=== PATIENT | male | born 1970 | race Two or more races ===

== ENCOUNTER 2025-07-07 12:33 | Inpatient (IN) | payer MEDICAID, SELFPAY ==
[2025-07-07] VITALS (7 sets, daily range): BP systolic 104–182; BP diastolic 80–106; PULSE 72–109; RESP 17–89; TEMP 36.4–40.7; O2SAT 89–99; BMI 48.4
--- NOTE | 2025-07-07 12:44 | EKG_ITS ---
[facility] Test Date: 2025-07-07 Pat Name: MEREDITH CAMPUZANO Department: Room: - Gender: Male Chair Mender: : 1970 Requested By: Ricky Valencia Order Number: [id number] Reading MD: Ricky Valencia Measurements Intervals [place] Rate: 109 P: 36 DC: 172 QRS: -7 QRSD: 106 T: 28 QT: 366 QTc: 493 Interpretive Statements SINUS TACHYCARDIA MODERATE ST DEPRESSION [0.05+ mV ST DEPRESSION] No previous ECG available for comparison /[id number]/S0/[id number].pdf
--- NOTE | 2025-07-07 12:52 | XR_ITS ---
Examination: AP chest single view Technique one AP portable upright chest single view Date and time: July 07, 2025 1305 hours, comparison September 27, 2013 INDICATIONS: Chest pain today, fever FINDINGS: Minor prominence left ventricle Ectatic thoracic aorta. Mild vascular congestion. No lobar pneumonia or pulmonary edema IMPRESSION: No lobar pneumonia or pulmonary edema
--- NOTE | 2025-07-07 12:52 | XR_ITS ---
Examination: CT brain head without contrast. 2-D sagittal coronal reconstructions Date and time of exam:July 07, 2025 1443 hours INDICATIONS: Altered mental status today CTDI: vol (mGy):57 DLP: (mGycm):1145 Technique: Multiple CT axial sections of the brain have been obtained, 5 mm slice thickness. Contrast has not been administered. 2-D sagittal, coronal reconstructions have been obtained Low dose protocols were performed. One or more of the following dose reduction techniques were used; automated exposure control, adjustment of the mA and/or KV according to patient size, use of iterative reconstruction technique. Findings: No significant ventricular enlargement. Intra-axial or extra-axial hemorrhage density is not seen. No mass effect or midline shift Basal cisterns are not remarkable. Fourth ventricle is midline. Cranial vault intact. Impression: Negative for acute hemorrhage, mass effect or midline shift Advise clinical correlation follow-up accordingly
--- NOTE | 2025-07-07 12:52 | PD.EDRME ---
Rapid Medical Screening Exam RME Arrival date/time: 07/07/25 12:33 54-year-old male with a history of hypertension, presents to the emergency room with a chief complaint of altered mental status. Patient is having a difficult time explaining what his chief complaint is and according to daughter at bedside this has been going on for the last 3 days. I have greeted and performed a focused initial assessment of this patient. A comprehensive ED assessment and evaluation of the patient, analysis of all test results, and completion of the medical decision making process will be conducted by additional ED providers. Chief Complaint: Dizziness Vital signs reviewed by provider: Yes
--- NOTE | 2025-07-07 13:14 | EDNOTE_ITS ---
<Statement entered by Nikki Wilson MD - 07/08/25 06:12> As co-signing physician, I was present and available for consult prn. I concur with the plan and care as documented by the midlevel provider. ED General RME/HPI General Chief complaint: Dizziness Stated complaint: Dizzy X 1 week, vomiting X 3 days Time Seen by Provider: 07/07/25 13:10 Arrival date/time: 07/07/25 12:33 CC: Weakness loss of appetite HPI ongoing for the past 3 days. The patient seems mildly confused, young daughter at bedside is not contributory to the past medical history. The patient is not aware what medicines he takes. Patient is awake alert oriented x 3 Glascow coma 15 no focal deficits. RME / HPI RME / HPI narrative: 07/07/25 12:33 54-year-old male with a history of hypertension, presents to the emergency room with a chief complaint of altered mental status. Patient is having a difficult time explaining what his chief complaint is and according to daughter at bedside this has been going on for the last 3 days. I have greeted and performed a focused initial assessment of this patient. A comprehensive ED assessment and evaluation of the patient, analysis of all test results, and completion of the medical decision making process will be conducted by additional ED providers. Related Data Home Medications ?Medication ?Instructions ?Recorded ?Confirmed Amlodipine Bes/Benazepril * PO DAILY PRN HYPERTENSION #0 caps 09/27/13 (LOTREL 02/28 *) Previous Rx's ?Medication ?Instructions ?Recorded ibuprofen 600 mg tablet 600 mg PO Q6HR #30 tabs 05/03 Allergies Allergy/AdvReac Type Severity Reaction Status Date / Time NKA* Allergy Uncoded 07/07/25 12:40 Review of Systems Review of Systems Narrative Review of Systems: GEN: + fever, no chills, no weight loss EYES: No discharge, no visual changes, no pain HEENT: No ear pain, no congestion, no sore throat PULM: No shortness of breath, no cough, no congestion CV: No chest pain, no dyspnea on exertion, no palpitations GI: No nausea, no vomiting, no diarrhea, no pain, no constipation : No frequency, no urgency, no dysuria MUSC/SKEL: No joint pain, no back pain SKIN: No rash PSYCH: No hallucinations, no depression HEME/LYMPH: No easy bleeding or bruising tendencies NEURO: + weakness, no headache Past Medical History Social History SMOKING STATUS: Never smoker ED Exam Narrative Physical exam: [General: Obese, appears not in any acute distress Head normocephalic HEENT: Eyes: Pupils are PERRLA EOMs are intact mouth pink moist membranes uvula is midline swallow symmetrical phonation is normal all of the substance of HEENT are within acceptable limits Neck is supple nontender Chest equal chest rise nontender to palpation Respiratory: Clear to auscultation no wheezes crackles or rubs CV: Rate rhythm is regular no murmurs rubs or clicks Abdomen is grossly distended secondary to body habitus with large pannus, soft nontender no masses positive bowel sounds all 4 quadrants Back: No CVA tenderness no spinous process tenderness from cervical spine thoracic and lumbar spine Skin: Intact no petechiae rash induration ulceration or crepitus Extremities: Moving all extremity against resistance cap refill less than 2 seconds neurosensory intact Neuro: Awake alert oriented x3 Glascow coma 15 no focal deficits] cranial nerves II through XII grossly intact Course Course Course Narrative: Review the laboratory results and imaging shows no acute source for sepsis. In the meantime the patient has become more somnolent even though his fevers coming down. The patient remains also mildly diaphoretic. Patient's case clinical presentation laboratory findings presented to Dr. Mojica neurologist who is requesting IR LP. Once him started on Rocephin and Vanco and will admit him to the hospital. Quality Measures none Orders Category Date Time Status Bedside Blood Glucose Q6HR Care 07/07/25 20:24 Active Bedside COVID-19 Antigen Test NOW Care 07/07/25 13:00 Active Bedside Influenza A&B Antigen Test NOW Care 07/07/25 13:00 Completed COVID-19 Screening Questionnaire NOW Care 07/07/25 19:04 Active Decision to Admit X1 Care 07/07/25 19:04 Completed EKG (ED ONLY) *Do not use* NOW Care 07/07/25 12:44 Completed Burch [Urinary Catheter] QS Care 07/07/25 17:59 Active In and Out Catheter X1 Care 07/07/25 16:22 Completed Consult to Neurology / Tele-Neurology Stat Cons 07/07/25 17:[address] abdomen pelvis wo con Stat Exams 07/07/25 16:[address] head/brain wo con Stat Exams 07/07/25 12:52 Completed EKG (ED Only) Stat Exams 07/07/25 12:44 Draft IR lumbar puncture Stat Exams 07/07/25 Ordered US gall bladder Stat Exams 07/07/25 17:20 Completed XR chest 1V portable Stat Exams 07/07/25 12:52 Completed ABG [Arterial Blood Gas] Stat Lab 07/07/25 19:36 Completed Alcohol, Blood Medical Stat Lab 07/07/25 13:29 Completed Ammonia Stat Lab 07/07/25 13:29 Completed B-Type Natriuretic Peptide Stat Lab 07/07/25 13:29 Completed Beta Hydroxybutyrate Routine Lab 07/07/25 20:55 Completed Blood Culture (Lab) Stat Lab 07/07/25 13:29 Received CBC Stat Lab 07/07/25 13:29 Completed CSF Culture and Gram Stain Stat Lab 07/07/25 22:00 Ordered Cell Count w Diff, CSF Stat Lab 07/07/25 22:00 Ordered Cocci Serology IgM with reflex to IgG [Cocci Serology, Lab 07/08/25 05:00 Ordered Unk History] AM DRAW Coccid Serology, CF CSF (UCD)* Stat Lab 07/07/25 22:00 Ordered Comprehensive Metabolic Panel Stat Lab 07/07/25 13:29 Completed Drug Screen,Urine Stat Lab 07/07/25 16:23 Completed Enterovirus RNA, PCR, CSF Stat Lab 07/07/25 22:00 Ordered Glucose,CSF Stat Lab 07/07/25 22:00 Ordered Lactate (Lactic Acid) Stat Lab 07/07/25 13:29 Completed Lactic Acid, 3 HR Stat Lab 07/07/25 17:11 Completed Magnesium Stat Lab 07/07/25 13:29 Completed Partial Thromboplastin Time Stat Lab 07/07/25 13:29 Completed Procalcitonin Stat Lab 07/07/25 13:29 Completed Protein Total,CSF Stat Lab 07/07/25 22:00 Ordered Prothrombin Time with INR Stat Lab 07/07/25 13:29 Completed Troponin I Stat Lab 07/07/25 13:29 Completed Urinalysis, C/S if Indicated Stat Lab 07/07/25 16:23 Completed Acetaminophen Ivpb [Ofirmev Inj] Med 07/07/25 13:11 Hold 1,000 mg in 100 ml IV Q6HR Acetaminophen Tab [Tylenol ES Tab] Med 07/07/25 13:01 Discontinued 1,000 mg PO X1 ONE Acyclovir Inj [Zovirax Inj] 700 mg Med 07/07/25 22:00 Active Sodium Chloride 0.9% [Ns] 100 ml IV Q8HR Acyclovir Inj [Zovirax Inj] 700 mg Med 07/08/25 14:00 Pending Sodium Chloride 0.9% [Ns] 100 ml IV Q8HR Ampicillin Inj 2,000 mg Med 07/07/25 17:52 Active Sodium Chloride 0.9% (Pop) [NS 0.9% mini bag] 100 ml IV Q4HR Dextrose 50% Syr [D50w Syringe Abboject] Med 07/07/25 20:24 Active 25 ml IV Q15MIN PRN Dextrose 50% Syr [D50w Syringe Abboject] Med 07/07/25 20:24 Active 50 ml IV Q15MIN PRN Glucagon Inj Med 07/07/25 20:24 Active 1 mg IM Q15MIN PRN INSULIN LISPRO (AdmeLOG) [HumaLOG] Med 07/08/25 07:30 Active See Protocol SC AC Ibuprofen Tab [Motrin Tab] Med 07/07/25 13:10 Discontinued 800 mg PO X1 ONE KCL 10% Liq UDC 15 ML Med 07/07/25 14:50 Discontinued 40 meq GT X1 ONE Ringers Lactated 1000 ml [Lactated Ringers] 1,000 ml Med 07/07/25 14:03 Discontinued IV 999 mls/hr Ringers Lactated 1000 ml [Lactated Ringers] 1,000 ml Med 07/07/25 14:03 Discontinued IV 999 mls/hr Ringers Lactated 1000 ml [Lactated Ringers] 1,000 ml Med 07/07/25 14:04 Discontinued IV 999 mls/hr Ringers Lactated 1000 ml [Lactated Ringers] 1,000 ml Med 07/07/25 14:04 Discontinued IV 999 mls/hr Vancomycin Pharmacy to Dose Med 07/08/25 09:00 Active 1 each IV QDAY Vancomycin/D5w 1500 mg Ivpb 300 ml Med 07/07/25 17:04 Discontinued IV X1 cefTRIAXone [Rocephin] 2 gm Med 07/07/25 21:00 Active SODIUM CHLORIDE 0.9% (Popper) [Ns 0.9% (P)] 50 ml IV Q12HR cefTRIAXone/D5w 1gm IV premix [Rocephin/D5w 1gm IV Med 07/07/25 14:04 Di scontinued premix] 1 gm in 50 ml IV X1 cefTRIAXone/D5w 1gm IV premix [Rocephin/D5w 1gm IV Med 07/07/25 17:04 Discontinued premix] 1 gm in 50 ml IV X1 Vital Signs Vital signs: Vital Signs Temperature 103.1 F H 07/07/25 12:55 Pulse Rate 109 H 07/07/25 12:55 Respiratory Rate 19 07/07/25 12:55 Blood Pressure 157/100 H 07/07/25 12:55 Pulse Oximetry (%) 95 07/07/25 12:55 Oxygen Delivery Method Room Air 07/07/25 12:55 Discharge Plan Plan Patient Disposition: Admit Acute Care w/in Hospital Problem List Clinical Impression: AMS (altered mental status), Fever PA/BURR FILER Supervising Physician PA/BURR FILER Supervising Physician: Karl Dhillon ENP [facility] Clinical Information Provided by patient Medical Records Reviewed [facility] Meds/Rx Considered, not Ordered None Labs/Rad/Tests considered, not Ordered None EKG EKG Interpretation narrative: EKG performed at 1250 shows a ventricular rate of 109. Of 0172 QRS of 106 QTc of 430 sinus tachycardia. Lab Interpretation Lab(s) interpretation(s): CBC shows mild leukocytosis of 13.3 no anemia thrombocytopenia no bandemia Coags within acceptable limits. Lactic at 3.2. CMP shows potassium 3.1 chloride of 95. Glucose of 321 T. bili of 1.4 no transaminitis Ammonia less than 10 BNP of 215 total protein of 8.4 Procalcitonin of 0.15. Alcohol level is undetectable. COVID influenza are negative Medication Administration(s) Medication Administration History Acetaminophen (Acetaminophen 325 Mg Tablet) 650 mg PO Q6H PRN PRN Reason: PAIN SCALE 1-3 (mild Stop: 08/06/25 20:27 Acetaminophen (Acetaminophen 325 Mg Tablet) 650 mg PO Q6H PRN PRN Reason: Fever >100.4 Stop: 08/06/25 20:27 Dextrose (Dextrose 50%-Water Inj 50 Ml Syringe) 25 ml IV Q15MIN PRN PRN Reason: BG 50-70 responsive npo pt Stop: 08/06/25 20:23 Dextrose (Dextrose 50%-Water Inj 50 Ml Syringe) 50 ml IV Q15MIN PRN PRN Reason: BG <50 OR BG <70 & pt unresponsive Stop: 08/06/25 20:23 Glucagon (Glucagon Inj 1 Mg Vial) 1 mg IM Q15MIN PRN PRN Reason: BG <70, and no IV access Acetaminophen (Ofirmev Inj) 1,000 mg in 100 mls @ 250 mls/hr IV Q6HR EVANGELINA On Hold: 07/07/25 20:35 Comment: CHANGED TO TABLET Last Admin: 07/07/25 18:11 Dose: Not Given Documented By: NAVEED Non-Admin Reason: Cancelled by Provider Infusion: 07/07/25 14:00 Dose: Infused Documented By: Admin: 07/07/25 13:32 Dose: 250 mls/hr Documented By: NAVEED Ceftriaxone Sodium 2 gm/ (Sodium Chloride) 50 mls @ 100 mls/hr IV Q12HR EVANGELINA Stop: 07/14/25 20:59 Last Admin: 07/07/25 20:59 Dose: 100 mls/hr Documented By: JAHAIRA Ampicillin Sodium 2,000 mg/ (Sodium Chloride) 100 mls @ 200 mls/hr IV Q4HR EVANGELINA Stop: 07/14/25 17:51 Last Admin: 07/07/25 22:53 Dose: 200 mls/hr Documented By: Infusion: 07/07/25 20:08 Dose: Infused Documented By: Admin: 07/07/25 19:35 Dose: 200 mls/hr Documented By: JAHAIRA Acyclovir Sodium 700 mg/ (Sodium Chloride) 114 mls @ 114 mls/hr IV Q8HR EVANGELINA Stop: 07/14/25 21:59 Acyclovir Sodium 700 mg/ (Sodium Chloride) 114 mls @ 114 mls/hr IV Q8HR EVANGELINA; Protocol Stop: 07/08/25 06:59 Last Admin: 07/07/25 22:01 Dose: 114 mls/hr Documented By: Insulin Human Lispro (Insulin Lispro (Admelog) 1 Unit/0.01 Ml Unit) 0 unit SC AC EVANGELINA; Protocol Stop: 08/07/25 07:29 Ondansetron HCl (Ondansetron Inj 2 Mg/Ml Inj 2 Ml) 4 mg IVP Q6H PRN; Protocol PRN Reason: NAUSEA OR VOMITING Stop: 08/06/25 20:27 Pantoprazole Sodium (Pantoprazole Inj 40 Mg Vial) 40 mg IVP QDAY [facility] Stop: 08/07/25 08:59 Pharmacy Consult (Vancomycin Pharmacy To Dose 1 Each Each) 1 each IV QDAY [facility] Stop: 08/07/25 08:59 Discontinued Medications Acetaminophen (Acetaminophen 500 Mg Tablet) 1,000 mg PO X1 ONE Stop: 07/07/25 13:02 Last Admin: 07/07/25 13:12 Dose: Not Given Documented By: GM Non-Admin Reason: Cancelled by Provider Lactated Ringer's (Lactated Ringers) 1,000 mls @ 999 mls/hr IV .Q1H1M ONE Stop: 07/07/25 15:03 Last Infusion: 07/07/25 16:14 Dose: Infused Documented By: Admin: 07/07/25 14:29 Dose: 999 mls/hr Documented By: AA Lactated Ringer's (Lactated Ringers) 1,000 mls @ 999 mls/hr IV .Q1H1M ONE Stop: 07/07/25 15:03 Last Infusion: 07/07/25 18:12 Dose: Infused Documented By: Admin: 07/07/25 15:33 Dose: 999 mls/hr Documented By: GM Lactated Ringer's (Lactated Ringers) 1,000 mls @ 999 mls/hr IV .Q1H1M ONE Stop: 07/07/25 15:04 Last Infusion: 07/07/25 18:59 Dose: Infused Documented By: Admin: 07/07/25 16:14 Dose: 999 mls/hr Documented By: GM Lactated Ringer's (Lactated Ringers) 1,000 mls @ 999 mls/hr IV .Q1H1M ONE Stop: 07/07/25 15:04 Last Infusion: 07/07/25 20:08 Dose: Infused Documented By: Admin: 07/07/25 18:11 Dose: 999 mls/hr Documented By: NAVEED Ceftriaxone Sodium/Dextrose (Rocephin/D5w 1gm Iv Premix) 1 gm in 50 mls @ 100 mls/hr IV X1 ONE Stop: 07/07/25 14:33 Last Infusion: 07/07/25 15:13 Dose: Infused Documented By: Admin: 07/07/25 14:28 Dose: 100 mls/hr Documented By: AA Vancomycin HCl/Dextrose (Vancomycin/D5w 1500 Mg Ivpb) 300 mls @ 120 mls/hr IV X1 ONE Stop: 07/07/25 19:33 Last Admin: 07/07/25 20:02 Dose: 120 mls/hr Documented By: DT Ceftriaxone Sodium/Dextrose (Rocephin/D5w 1gm Iv Premix) 1 gm in 50 mls @ 100 mls/hr IV X1 ONE Stop: 07/07/25 17:33 Last Infusion: 07/07/25 18:59 Dose: Infused Documented By: Admin: 07/07/25 18:11 Dose: 100 mls/hr Documented By: NAVEED Ibuprofen (Ibuprofen Tab 400 Mg Tablet) 800 mg PO X1 ONE Stop: 07/07/25 13:11 Last Admin: 07/07/25 13:15 Dose: 800 mg Documented By: NAVEED Potassium Chloride (Potassium Chloride 10% 20 Meq/15 Ml Udc) 40 meq GT X1 ONE Stop: 07/07/25 14:51 Last Admin: 07/07/25 15:29 Dose: 40 meq Documented By: NAVEED Comments: GIVEN PO.
[2025-07-07] MEDS: IBUPROFEN TAB 400 MG TABLET 800 MG PO (13:15)
[2025-07-07] MEDS: ACETAMINOPHEN IVPB 1,000 MG/100 ML VIAL 250 MG IV (13:32)
[2025-07-07 13:52] LABS: Lactate (Lactic Acid) 3.2 mMol/L (0.4-2.0)
[2025-07-07 13:56] LABS: Basophils # (Auto) 0.0 Thou/mm3 (0.0-0.2); Basophils % (Auto) 0 % (0-2.5); Eosinophils # (Auto) 0.0 Thou/mm3 (0.0-0.5); Eosinophils % (Auto) 0 % (0-10); Hematocrit 47.0 % (41.0-53.0); Hemoglobin 15.9 g/dL (13.5-16.0); Immature Granulocytes Auto 0.06 Thou/mm3 (0.00-0.00); Lymphocytes # (Auto) 1.4 Thou/mm3 (1.0-4.8); Lymphocytes % (Auto) 10 % (10-50); Mean Corpuscular HGB Conc 33.8 g/dl (31.0-37.0); Mean Corpuscular Hemoglobin 27.6 pg (25.0-35.0); Mean Corpuscular Volume 82 fL (80-100); Monocytes # (Auto) 1.2 Thou/mm3 (0.0-0.8); Monocytes % (Auto) 9 % (0-12); Neutrophils # (Auto) 10.9 Thou/mm3 (1.8-7.7); Neutrophils % (Auto) 80 % (37-80); Nucleated Red Blood Cell # 0.00 Thou/mm3 (0.00-0.00); Nucleated Red Blood Cell % 0 /100 WBC (0); Platelet Count 309 Thou/mm3 (140-440); RDW Standard Deviation 39.6 fL (35.1-43.9); Red Blood Count 5.77 Miln/mm3 (4.50-5.90); White Blood Count 13.7 Thou/mm3 (3.8-10.6)
[2025-07-07 14:10] LABS: INR 1.1 (0.9-1.3); Partial Thromboplastin Time 25.6 Seconds (22.0-36.0); Prothrombin Time 11.5 Seconds (9.0-12.2)
[2025-07-07 14:17] LABS: B-Type Natriuretic Peptide 215 pg/mL (0-100)
[2025-07-07 14:24] LABS: Alanine Aminotransferase 12 U/L (10-49); Albumin, Serum 4.9 gm/dL (3.5-5.0); Albumin/Globulin Ratio 1.4 (1.2-2.2); Alcohol, Blood Medical < 3.0 mg/dL (0-10.0); Alkaline Phosphatase 79 U/L (46-116); Ammonia < 10 uMol/L (11-32); Anion Gap 13 (7-16); Aspartate Amino Transferase 16 U/L (0-34); BUN/Creatinine Ratio 13 Ratio (12-20); Bilirubin,Total 1.4 mg/dL (0.3-1.2); Blood Urea Nitrogen 17 mg/dL (9-23); Calcium 10.2 mg/dL (8.3-10.6); Calcium (Corrected) 10.2 mg/dL (8.5-10.1); Carbon Dioxide 27.8 mMol/L (20.0-31.0); Chloride 95 mMol/L (98-107); Creatinine (Component) 1.3 mg/dL (0.6-1.3); Estimated Creatinine Clearance 83.2 mL/min (>60); Globulin 3.5 gm/dL (2.3-3.5); Glucose 321 mg/dL (74-106); Magnesium 2.2 mg/dL (1.6-2.6); Osmolality,Calculated 285 (275-295); Potassium 3.1 mMol/L (3.4-5.1); Procalcitonin 0.15 ng/ml (0.0-0.49); Sodium 136 mMol/L (136-145); Total Protein 8.4 gm/dL (5.7-8.2); Troponin I 0.034 ng/mL (0.0-0.045); eGFR > 60 See Note
[2025-07-07] MEDS: cefTRIAXone/D5w 1gm IV premix 1 GM/50 ML BAG IV ×2 (14:28→18:11)
[2025-07-07] MEDS: RINGERS LACTATED 1000 ML 1,000 ML 999 ML IV ×4 (14:29→18:11)
[2025-07-07] MEDS: POTASSIUM CHLORIDE 10% 20 MEQ/15 ML UDC 40 MEQ GT (15:29)
--- NOTE | 2025-07-07 16:03 | XR_ITS ---
Examination: CT abdomen and pelvis without contrast. Coronal 3-D reconstructions. Sagittal 2-D reconstructions. Date and time of exam:July 07, 2025 1627 hrs. Indications: Sepsis alert today with abdominal pain. CTDI: vol (mGy): 13.7 DLP: (mGycm): 1062 Technique: Axial images of the abdomen have been obtained, 3 mm slice thickness Intravenous contrast material has not been administered. Low dose protocols were performed. One or more of the following dose reduction techniques were used; automated exposure control, adjustment of the mA and/or KV according to patient size, use of iterative reconstruction technique. Findings: No visualized liver or splenic lesion No gallstones No pancreatic or adrenal mass Minimal perinephric stranding Aorta normal size. Normal appendix No abdominal or pelvic abscess Scattered colonic diverticulosis Urinary bladder wall thickening up to 4 mm No significant prostatomegaly Early degenerative disc disease L4-L5 Grade 1 spondylolisthesis L5 on S1 Impression: Minimal perinephric stranding, consider urinary tract infection Mild thickening of the urinary bladder wall, consider cystitis No abdominal or pelvic abscess. Normal appendix
[2025-07-07 16:29] LABS: Collection Type, Urine Clean Catch
[2025-07-07 16:42] LABS: Amphetamine/Methamp Scrn,U Negative (Negative); Barbiturate Screen,Urine Negative (Negative); Benzodiazepines Screen,Urine Negative (Negative); Benzoylecgonine Screen, Ur Negative (Negative); Fentanyl Screen,Urine Negative (Negative); Opiate Screen,Urine Negative (Negative); THC Screen,Urine Negative (Negative)
[2025-07-07 16:46] LABS: Reflex Lactate? Y
[2025-07-07 16:46] LABS: Bilirubin,Urine Negative (Negative); Blood,Urine Trace (Negative); Clarity,Urine Clear (Clear/Hazy); Color,Urine Yellow (Lt Yel-Yel); Culture Indicated,Urine Not Indicated; Glucose, Urine 4+ (Negative); Ketones,Urine 1+ (Negative); Leukocyte Esterase,Urine Negative (Negative); Nitrite,Urine Negative (Negative); PH,Urine 6.5 (5.0-7.0); Protein,Urine 2+ (Neg - Trace); RBC,Urine 1 /hpf (0-3); Specific Gravity,Urine 1.029 (1.001-1.035); Squamous Epithelial Cell,Urine < 1 /hpf (0-5); Urobilinogen,Urine Negative mg/dL (0.0-1.0); WBC,Urine 1 /hpf (0-5)
[2025-07-07 17:14] LABS: Lactic Acid, 3 HR 2.1 mMol/L (0.4-2.0)
--- NOTE | 2025-07-07 17:20 | XR_ITS ---
Examination: Abdomen sonogram, Limited Date and time of exam: July 07, 2025 1803 hrs. Indications: Sepsis vomiting today, with elevated bilirubin on laboratory examination today Technique: Real-time downs scale transabdominal sonographic images of the upper abdomen obtained. Findings: Negative for gallstones Normal gallbladder wall 0.2 cm Common bile duct 0.4 cm Pancreatic head 3.4 cm Liver 15.7 cm fatty infiltration no focal liver lesions. Normal hepatopedal portal venous flow Patent IVC Impression: Normal gallbladder Normal common bile duct Liver normal size fatty infiltration
--- NOTE | 2025-07-07 17:31 | PD.RESCONSUL ---
HPI Data of Consult Primary Care Provider: Kalpesh Garcia Consult Narrative History of present illness: HPI is limited at this time as patient is poor historian at this time Anshul is a 54 y/o male who comes in for evaluation of generalized weakness and confusion has been going on for the past 3 days. Per family member, patient has been having the symptoms for the past 3 days. She says that no one around him has had the symptoms before. They deny any recent travel, sick contacts or any changes to the patient's diet. She is unsure what the patient's work is. She says that the patient has not complained to her of any headache. Patient is able to respond to sternal rub and with pronunciation of his name, and withdraws to pain, however is somnolent at this time. ED course: Patient comes to the ER with a temperature of 105.2, tachycardic at 102, respiratory 19, saturating 89% on room air. Patient was worked up once found to have a white blood cell count of 14, hemoglobin 15.9, potassium 3.1, sodium 136, chloride 95, bicarb 28, BUN/creatinine 17 and 1.2 respectively, glucose 321, lactate 3.6, calcium 7.2, T. bili 1.4, AST ALT within normal limits, troponin 0.034, ammonia unremarkable, BNP 215, Pro-Raman 0.15. Urine analysis showed +4 glucose, +1 ketones. Urine drug screen was negative, ethyl alcohol level was unremarkable. Patient had EKG which showed sinus tachycardia, QTc of 493, chest x-ray was within normal limits, head CT was unremarkable with no mass effect, midline shift or acute hemorrhage, CT abdomen pelvis showed mild thickening of the bladder and minimal perinephric stranding. Patient was given patient was given Rocephin x 1, 3 L lactated Ringer's, ibuprofen and her milligrams x 1, Tylenol 1 g, potassium chloride 40 mEq. cc:: cc: Review of Systems Review of Systems Narrative Review of Systems: 12 point ROS was reviewed and otherwise negative for stated directly in HPI Exam Vital Signs Temp Pulse Resp BP Pulse Ox O2 Del Method O2 Flow Rate 100.6 F H 78 17 104/81 94 L Nasal Cannula 2 07/07/25 15:24 07/07/25 15:24 07/07/25 15:24 07/07/25 15:24 07/07/25 15:24 07/07/25 15:24 07/07/25 15:24 Narrative Exam General: In mild distress, morbidly obese male, eyes closed, HEENT: Pinpoint pupils, difficulty assessing extraocular motor movements Cardiovascular: S1, S2, radial pulses +2 bilat, RRR Pulmonary: CTAB bilat no cough, no wheezing GI: No tenderness to light or deep palpitation, no guarding, rigidity, rebound tenderness or distension Extremities: No presence of trace or pitting edema in lower extremities bilaterally, dorsalis pedis pulses +2 bilaterally Neuro: GCS 9, responds to sternal rub, with this from pain Psych: Minimal cooperation Results Labs 07/09/25 04:30 07/09/25 04:30 Labs: Short CBC 07/07/25 Range/Units 13:29 WBC 13.7 H (3.8-10.6) Thou/mm3 Hgb 15.9 (13.5-16.0) g/dL Hct 47.0 (41.0-53.0) % Plt Count 309 (140-440) Thou/mm3 BMP 07/07/25 13:29 Sodium 136 Potassium 3.1 L Chloride 95 L Carbon Dioxide 27.8 BUN 17 Creatinine 1.3 Glucose 321 H Calcium 10.2 Cardiac Enzymes 07/07/25 Range/Units 13:29 Troponin I 0.034 (0.0-0.045) ng/mL Liver Function 07/07/25 Range/Units 13:29 Total Bilirubin 1.4 H (0.3-1.2) mg/dL AST 16 (0-34) U/L ALT 12 (10-49) U/L Alkaline Phosphatase 79 (46-116) U/L Albumin 4.9 (3.5-5.0) gm/dL Urine 07/07/25 Range/Units 16:23 Urine Color Yellow (Lt Yel-Yel) Urine Clarity Clear (Clear/Hazy) Urine pH 6.5 (5.0-7.0) Ur Specific [place] 1.029 (1.001-1.035) Urine Protein 2+ A (Neg - Trace) Urine Glucose (UA) 4+ A (Negative) Quality Measures Quality Measures sepsis Current suspected stage: sepsis Possible source: GI tract/intra-abdominal and meningitis Blood cultures ordered: yes Antibiotic ordered: Yes Medications Home Medications and Allergies Home Medications ?Medication ?Instructions ?Recorded ?Confirmed ?Type Amlodipine Bes/Benazepril * 1 cap PO DAILY PRN HYPERTENSION #0 09/27/13 07/08/25 History (LOTREL 510 *) caps amlodipine 10 mg tablet 10 mg PO DAILY 07/07/25 07/07/25 History glipizide 10 mg tablet, extended 10 mg PO DAILY 07/07/25 07/07/25 History release 24 hr lisinopril 10 mg tablet 10 mg PO DAILY 07/07/25 07/07/25 History metformin 1,000 mg tablet 1,000 mg PO BID 07/07/25 07/07/25 History Allergies Allergy/AdvReac Type Severity Reaction Status Date / Time NKA* Allergy Uncoded 07/07/25 12:40 Visit Medications Acetaminophen (Ofirmev Inj) 1,000 mg in 100 mls @ 250 mls/hr IV Q6HR EVANGEILNA Stop: 07/08/25 06:23 Last Infusion: 07/07/25 14:00 Dose: Infused Vancomycin HCl/Dextrose (Vancomycin/D5w 1500 Mg Ivpb) 300 mls @ 120 mls/hr IV X1 ONE Stop: 07/07/25 19:33 Ceftriaxone Sodium/Dextrose (Rocephin/D5w 1gm Iv Premix) 1 gm in 50 mls @ 100 mls/hr IV X1 ONE Stop: 07/07/25 17:33 Discontinued Medications Acetaminophen (Acetaminophen 500 Mg Tablet) 1,000 mg PO X1 ONE Stop: 07/07/25 13:02 Last Admin: 07/07/25 13:12 Dose: Not Given Lactated Ringer's (Lactated Ringers) 1,000 mls @ 999 mls/hr IV .Q1H1M ONE Stop: 07/07/25 15:03 Last Infusion: 07/07/25 16:14 Dose: Infused Lactated Ringer's (Lactated Ringers) 1,000 mls @ 999 mls/hr IV .Q1H1M ONE Stop: 07/07/25 15:03 Last Admin: 07/07/25 15:33 Dose: 999 mls/hr Lactated Ringer's (Lactated Ringers) 1,000 mls @ 999 mls/hr IV .Q1H1M ONE Stop: 07/07/25 15:04 Last Admin: 07/07/25 16:14 Dose: 999 mls/hr Lactated Ringer's (Lactated Ringers) 1,000 mls @ 999 mls/hr IV .Q1H1M ONE Stop: 07/07/25 15:04 Ceftriaxone Sodium/Dextrose (Rocephin/D5w 1gm Iv Premix) 1 gm in 50 mls @ 100 mls/hr IV X1 ONE Stop: 07/07/25 14:33 Last Infusion: 07/07/25 15:13 Dose: Infused Ibuprofen (Ibuprofen Tab 400 Mg Tablet) 800 mg PO X1 ONE Stop: 07/07/25 13:11 Last Admin: 07/07/25 13:15 Dose: 800 mg Potassium Chloride (Potassium Chloride 10% 20 Meq/15 Ml Udc) 40 meq GT X1 ONE Stop: 07/07/25 14:51 Last Admin: 07/07/25 15:29 Dose: 40 meq Assessment & Plan Plan Assessment: Anshul is a 54 y/o male with PMHx of morbid obesity comes in for an evaluation of sepsis and acute encephalopathy. #Acute encephalopathy DDx: Infectious, drug-induced, metabolic Likely infectious source at this time due to patient meeting septic criteria Temperature of 105, likely related to possible meningitis, however the patient did not complain of the headache Will need to cover for bacterial and viral meningitis at this time Plan: ? Antipyretics ? Lumbar puncture ? Rocephin 2 g IV twice daily ? Vancomycin ? Ampicillin 2 g IV every 4 hours ? Acyclovir IV 10 mg/kg every 8 hours ? Cocci IgM Patient seen and care discussed with my attending physician, Dr. Yunior Avery, PGY-2 This document was transcribed using voice recognition technology. Minor inaccuracies may be present. Attending Provider Attestation/Addendum I personally have seen and examined the patient at the bedside and agreed with resident's findings, assessment and plan of care. Patient underwent lumbar puncture today. Patient's mental status is back to baseline, as he continued to have fever spikes. Will follow-up with the CSF analysis continue with the current antibiotics until the culture comes back.
--- NOTE | 2025-07-07 18:07 | EVENTNT_ITS ---
Documentation for date of: 07/07/25 Event Note Event Note: Anshul Jaramillo is a 54-year-old male with past medical history of type 2 diabetes mellitus and hypertension who presents with weakness and confusion for the last few days. Due to mental status, history obtained from chart review. Upon arrival to the ED, patient was febrile with temperature 105.2 ?F, tachycardic with pulse of 109, and saturating well on room air. Per ED staff, initial GCS of 15 but decreased to 10 while in ED but was withdrawing to pain. Labs showed mild leukocytosis of 13.7 but otherwise CBC unremarkable. CHEM panel showed hypokalemia of 3.1, glucose 321, lactic acid of 3.2 that decreased to 2.1 with IVF. Otherwise, T. bili elevated 1.4 but does not endorse any abdominal pain. CXR unremarkable, CT head unremarkable, and CT A/P showed minimal perinephric stranding and mild thickening of urinary bladder wall. EKG showed sinus tachycardia. Given decrease in GCS within ED and high fever, CT A/P findings do not correlate with presentation and currently patient is undergoing LP per recommendations from neurology at this time and initiated on rocephin, vancomycin, ampicillin, and acyclovir for meningitis treatment. Given pending studies [facility]. ----- Plan discussed with attending physician Dr. Elysia Robles MD PGY-2 Internal Medicine
[2025-07-07] MEDS: Ampicillin Inj 2,000 MG in SODIUM CHLORIDE 0.9% (POP) 100 ML 200 MG IV ×2 (19:35→22:53)
[2025-07-07 19:41] LABS: Base Excess 3 (-3-3); HCO3 28 mEq/L (20-26); Inspired Oxygen, FIO2 21 %; O2 Saturation 99 % (91-98); PCO2 43 mmHg (32.0-48.0); PO2 99 mmHg (83-108); pH, Arterial 7.42 (7.35-7.45)
[2025-07-07 19:43] LABS: Allen Test Performed/OK; Puncture Site Right Radial
[2025-07-07] MEDS: VANCOMYCIN/D5W 1500 MG IVPB 300 ML 120 MG IV (20:02)
[2025-07-07] MEDS: cefTRIAXone 2 GM in SODIUM CHLORIDE 0.9% (Popper) 50 ML IV (20:59)
[2025-07-07 21:11] LABS: Beta Hydroxybutyrate 0.1 mmol/L (<0.6)
[2025-07-07] MEDS: ACYCLOVIR INJ 700 MG in SODIUM CHLORIDE 0.9% 100 ML 114 MG IV (22:01)
--- NOTE | 2025-07-07 22:29 | ESHP_ITS ---
Documentation for date of: 07/07/25 [facility] History of Present Illness History of present illness: Anshul Jaramillo is a 54-year-old male with past medical history of type 2 diabetes mellitus and hypertension who presents to [facility] ED on 07/07/2025 with weakness and confusion for the last few days. Due to mental status, history obtained from chart review. Per family member daughter, patient has been having the symptoms for the past 3 days. She says that no one around him has had the symptoms before. They deny any recent travel, sick contacts or any changes to the patient's diet. She is unsure about the patient work. She says that the patient has not complained to her of any headache. 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 Upon evaluation patient is able to respond to sternal rub and with pronunciation of his name, and withdraws to pain, however is somnolent at this time. ED Course: -Initial vitals were febrile with temperature 105.2 ?F, tachycardic with pulse of 109, and saturating well on room air. - Per ED staff, initial GCS of 15 but decreased to 10 while in ED but was withdrawing to pain. -Labs significant for white blood cell count of 14, hemoglobin 15.9, potassium 3.1, sodium 136, chloride 95, bicarb 28, BUN/creatinine 17 and 1.2 respectively, glucose 321, lactate 3.6, calcium 7.2, T. bili 1.4, AST ALT within normal limits, troponin 0.034, ammonia unremarkable, BNP 215, Pro-Raman 0.15. Urine analysis showed +4 glucose, +1 ketones. Urine drug screen was negative, ethyl alcohol level was unremarkable. EKG which showed sinus tachycardia, QTc of 493 -Imaging included CXR unremarkable, CT head unremarkable, and CT A/P showed minimal perinephric stranding and mild thickening of urinary bladder wall. EKG showed sinus tachycardia -In the ED, patient was ibuprofen, tylenol, ceftriaxone, 3 L LR, potassium chloride, ampicillin, vancomycin. -Patient was admitted for acute encephalopathy evaluation and management. Review of Systems Review of systems otherwise negative except what is mentioned above. Past Medical History: Mentioned above Family History: Unable to obtain due to mentation Surgical History: Unable to obtain due to mentation Social History: Unable to obtain due to mentation Current Medications: med list Allergies: No known drug allergies Exam Vital Signs Temp Pulse Resp BP Pulse Ox O2 Del Method O2 Flow Rate 97.9 F 72 17 127/80 97 Room Air 2 07/07/25 20:04 07/07/25 20:04 07/07/25 20:04 07/07/25 20:04 07/07/25 20:04 07/07/25 20:04 07/07/25 18:06 Narrative Exam General: Somnolence, morbidly obese male, no acute distress. Skin: Warm, dry, intact. No rash or ecchymoses. Head: Normocephalic, atraumatic. Eye: Pinpoint pupils, difficulty assessing extraocular motor movements Throat: Oral mucosa moist. No obvious lesions in oropharynx. Cardiovascular: Regular rate and rhythm, no murmur, +S1/S2. Respiratory: Lungs are clear to auscultation, respirations unlabored, no crackles, no wheezing. Gastrointestinal: Soft, nontender, non-distended. No guarding or rebound tenderness. Extremities: No edema, no cyanosis, no clubbing. Neuro: : GCS 9, responds to sternal rub, with this from pain Psychiatric: Cooperative, appropriate affect Results: Labs 07/08/25 05:17 07/08/25 05:17 Labs: Short CBC 07/07/25 Range/Units 13:29 WBC 13.7 H (3.8-10.6) Thou/mm3 Hgb 15.9 (13.5-16.0) g/dL Hct 47.0 (41.0-53.0) % Plt Count 309 (140-440) Thou/mm3 BMP 07/07/25 13:29 Sodium 136 Potassium 3.1 L Chloride 95 L Carbon Dioxide 27.8 BUN 17 Creatinine 1.3 Glucose 321 H Calcium 10.2 Cardiac Enzymes 07/07/25 Range/Units 13:29 Troponin I 0.034 (0.0-0.045) ng/mL Liver Function 07/07/25 Range/Units 13:29 Total Bilirubin 1.4 H (0.3-1.2) mg/dL AST 16 (0-34) U/L ALT 12 (10-49) U/L Alkaline Phosphatase 79 (46-116) U/L Albumin 4.9 (3.5-5.0) gm/dL Urine 07/07/25 Range/Units 16:23 Urine Color Yellow (Lt Yel-Yel) Urine Clarity Clear (Clear/Hazy) Urine pH 6.5 (5.0-7.0) Ur Specific [place] 1.029 (1.001-1.035) Urine Protein 2+ A (Neg - Trace) Urine Glucose (UA) 4+ A (Negative) ABG Interpretation ABG results: 07/07/25 19:36 ABG pH 7.42 ABG pCO2 43 ABG pO2 99 ABG HCO3 28 H ABG O2 Saturation 99 H ABG Base Excess 3 Quality Measures Quality Measures VTE prophylaxis and sepsis Current suspected stage: ruled out Possible source: GI tract/intra-abdominal and meningitis Blood cultures ordered: yes Antibiotic ordered: Yes Medications Home Medications and Allergies Home Medications ?Medication ?Instructions ?Recorded ?Confirmed ?Type Amlodipine Bes/Benazepril * 1 cap PO DAILY PRN HYPERTE NSION #0 09/27/13 07/08/25 History (LOTREL 02/28 *) caps amlodipine 10 mg tablet 10 mg PO DAILY 07/07/2506/22 History glipizide 10 mg tablet, extended 10 mg PO DAILY 07/07/25 History release 24 hr lisinopril 10 mg tablet 10 mg PO DAILY 07/07/2506/22 History metformin 1,000 mg tablet 1,000 mg PO BID 07/07/25 History Allergies Allergy/AdvReac Type Severity Reaction Status Date / Time NKA* Allergy Uncoded 07/07/25 12:40 Visit Medications Acetaminophen (Acetaminophen 325 Mg Tablet) 650 mg PO Q6H PRN PRN Reason: PAIN SCALE 1-3 (mild Stop: 08/06/25 20:27 Acetaminophen (Acetaminophen 325 Mg Tablet) 650 mg PO Q6H PRN PRN Reason: Fever >100.4 Stop: 08/06/25 20:27 Dextrose (Dextrose 50%-Water Inj 50 Ml Syringe) 25 ml IV Q15MIN PRN PRN Reason: BG 50-70 responsive npo pt Stop: 08/06/25 20:23 Dextrose (Dextrose 50%-Water Inj 50 Ml Syringe) 50 ml IV Q15MIN PRN PRN Reason: BG <50 OR BG <70 & pt unresponsive Stop: 08/06/25 20:23 Glucagon (Glucagon Inj 1 Mg Vial) 1 mg IM Q15MIN PRN PRN Reason: BG <70, and no IV access Acetaminophen (Ofirmev Inj) 1,000 mg in 100 mls @ 250 mls/hr IV Q6HR EVANGELINA On Hold: 07/07/25 20:35 Comment: CHANGED TO TABLET Last Admin: 07/07/25 18:11 Dose: Not Given Ceftriaxone Sodium 2 gm/ (Sodium Chloride) 50 mls @ 100 mls/hr IV Q12HR EVANGELINA Stop: 07/14/25 20:59 Last Admin: 07/07/25 20:59 Dose: 100 mls/hr Ampicillin Sodium 2,000 mg/ (Sodium Chloride) 100 mls @ 200 mls/hr IV Q4HR [facility] Stop: 07/14/25 17:51 Last Infusion: 07/07/25 20:08 Dose: Infused Acyclovir Sodium 700 mg/ (Sodium Chloride) 114 mls @ 114 mls/hr IV Q8HR EVANGELINA Stop: 07/14/25 21:59 Acyclovir Sodium 700 mg/ (Sodium Chloride) 114 mls @ 114 mls/hr IV Q8HR [facility]; Protocol Stop: 07/08/25 06:59 Last Admin: 07/07/25 22:01 Dose: 114 mls/hr Insulin Human Lispro (Insulin Lispro (Admelog) 1 Unit/0.01 Ml Unit) 0 unit SC AC [facility]; Protocol Stop: 08/07/25 07:29 Ondansetron HCl (Ondansetron Inj 2 Mg/Ml Inj 2 Ml) 4 mg IVP Q6H PRN; Protocol PRN Reason: NAUSEA OR VOMITING Stop: 08/06/25 20:27 Pantoprazole Sodium (Pantoprazole Inj 40 Mg Vial) 40 mg IVP QDAY [facility] Stop: 08/07/25 08:59 Pharmacy Consult (Vancomycin Pharmacy To Dose 1 Each Each) 1 each IV QDAY [facility] Stop: 08/07/25 08:59 Discontinued Medications Acetaminophen (Acetaminophen 500 Mg Tablet) 1,000 mg PO X1 ONE Stop: 07/07/25 13:02 Last Admin: 07/07/25 13:12 Dose: Not Given Lactated Ringer's (Lactated Ringers) 1,000 mls @ 999 mls/hr IV .Q1H1M ONE Stop: 07/07/25 15:03 Last Infusion: 07/07/25 16:14 Dose: Infused Lactated Ringer's (Lactated Ringers) 1,000 mls @ 999 mls/hr IV .Q1H1M ONE Stop: 07/07/25 15:03 Last Infusion: 07/07/25 18:12 Dose: Infused Lactated Ringer's (Lactated Ringers) 1,000 mls @ 999 mls/hr IV .Q1H1M ONE Stop: 07/07/25 15:04 Last Infusion: 07/07/25 18:59 Dose: Infused Lactated Ringer's (Lactated Ringers) 1,000 mls @ 999 mls/hr IV .Q1H1M ONE Stop: 07/07/25 15:04 Last Infusion: 07/07/25 20:08 Dose: Infused Ceftriaxone Sodium/Dextrose (Rocephin/D5w 1gm Iv Premix) 1 gm in 50 mls @ 100 mls/hr IV X1 ONE Stop: 07/07/25 14:33 Last Infusion: 07/07/25 15:13 Dose: Infused Vancomycin HCl/Dextrose (Vancomycin/D5w 1500 Mg Ivpb) 300 mls @ 120 mls/hr IV X1 ONE Stop: 07/07/25 19:33 Last Admin: 07/07/25 20:02 Dose: 120 mls/hr Ceftriaxone Sodium/Dextrose (Rocephin/D5w 1gm Iv Premix) 1 gm in 50 mls @ 100 mls/hr IV X1 ONE Stop: 07/07/25 17:33 Last Infusion: 07/07/25 18:59 Dose: Infused Ibuprofen (Ibuprofen Tab 400 Mg Tablet) 800 mg PO X1 ONE Stop: 07/07/25 13:11 Last Admin: 07/07/25 13:15 Dose: 800 mg Potassium Chloride (Potassium Chloride 10% 20 Meq/15 Ml Udc) 40 meq GT X1 ONE Stop: 07/07/25 14:51 Last Admin: 07/07/25 15:29 Dose: 40 meq Assessment & Plan Plan Anshul Jaramillo is a 54-year-old male with past medical history of type 2 diabetes mellitus and hypertension who presents to [facility] ED on 07/07/2025 with weakness and confusion for the last few days. Admitted for acute encephalopathy evaluation and management #Acute encephalopathy #Sepsis of unknow source DDx: Infectious, drug-induced, metabolic Likely infectious source at this time due to patient meeting septic criteria with temperature of 105, tachycardic 109 and WBC 13.7. Suspicion for possible meningitis, however the patient did not complain of the headache, neck stiffness. CAP showed minimal perinephric stranding and mild thickening of urinary bladder wall, UA was negative patient has no urinary symptoms. T. bili elevated 1.4 but does not endorse any abdominal pain. Given decrease in GCS within ED and high fever, CT A/P findings do not correlate with presentation and currently plan for LP per recommendations from neurology.Will need to cover for bacterial and viral meningitis at this time, hence on rocephin, vancomycin, ampicillin, and acyclovir for meningitis treatment. Less likely drug-induced as UTOX is negative and substance are monitored in [facility]. ? Antipyretics ? Lumbar puncture ? Rocephin 2 g IV twice daily ? Vancomycin ? Ampicillin 2 g IV every 4 hours ? Acyclovir IV 10 mg/kg every 8 hours ? Cocci IgM - CSF analysis, pending - Blood culture pending - Neurology consulted, recommendation appreciated #Type 2 diabetes mellitus On admission glucose 321. Glucose improving. No known A1c level. Home medication glipizide 10 mg, metformin 1000 p.o. twice daily - Glucose checks ACHS - Insulin sliding scale - A1c -pending [facility] # History of hypertension Home medication amlodipine 10 mg p.o. daily - Resume home medication Hospital management: Lines: peripheral IV Diet: N.p.o. GI prophylaxis: pantoprazole DVT prophylaxis: Heparin SC Disposition: Telemetry acute stable of the regular management CODE STATUS: Full code Patient seen and assessed under supervision of attending physician and discuss with senior resident Dr. Beatty PGY-2 Leticia Resendiz MD PGY-1, Internal Medicine Please note: this document was transcribed using voice recognition technology; minor inaccuracies may be present. Attending Provider Attestation/Addendum After examination of the patient and review of the clinical data I feel that this patient needs admission to the hospital for further treatment/evaluation. Plan of care discussed with patient and is in agreement. I Marie Petersen MD, attest that I was physically present for villagomez portions of evaluation, and examined patient, labs and imagings and plan of care were discussed with IM residents team, and I agree with the findings and plans documented above.
--- NOTE | 2025-07-07 22:50 | PC.NURSE ---
FAMILY CONTACT NIKA MATA [phone]
[2025-07-07] MEDS: RINGERS LACTATED 1000 ML 1,000 ML 125 ML IV (23:41)
[2025-07-07] MEDS: HEPARIN SOD INJ 5000 UNIT/ML VIAL SC (23:47)
[2025-07-08] VITALS (18 sets, daily range): BP systolic 123–183; BP diastolic 82–114; PULSE 74–109; RESP 15–19; TEMP 36.1–39.8; O2SAT 95–100; BMI 42.9; BMI 13.0
[2025-07-08] MEDS: INSULIN LISPRO (AdmeLOG) 1 UNIT/0.01 ML UNIT SC ×4 (00:18→23:44)
[2025-07-08] MEDS: Ampicillin Inj 2,000 MG in SODIUM CHLORIDE 0.9% (POP) 100 ML 200 MG IV ×6 (02:05→21:34)
[2025-07-08] MEDS: LABETALOL INJ 5 MG/ML VIAL 20 ML 10 MG IVP (05:13)
[2025-07-08] MEDS: ACETAMINOPHEN SUPP 650 MG SUPP PR (05:27)
[2025-07-08] MEDS: HEPARIN SOD INJ 5000 UNIT/ML VIAL SC (05:31)
[2025-07-08] MEDS: ACYCLOVIR INJ 700 MG in SODIUM CHLORIDE 0.9% 100 ML 114 MG IV ×3 (05:43→21:33)
[2025-07-08 05:56] LABS: Basophils # (Auto) 0.1 Thou/mm3 (0.0-0.2); Basophils % (Auto) 0 % (0-2.5); Eosinophils # (Auto) 0.0 Thou/mm3 (0.0-0.5); Eosinophils % (Auto) 0 % (0-10); Hematocrit 42.4 % (41.0-53.0); Hemoglobin 14.0 g/dL (13.5-16.0); Immature Granulocytes Auto 0.07 Thou/mm3 (0.00-0.00); Lymphocytes # (Auto) 1.9 Thou/mm3 (1.0-4.8); Lymphocytes % (Auto) 13 % (10-50); Mean Corpuscular HGB Conc 33.0 g/dl (31.0-37.0); Mean Corpuscular Hemoglobin 27.8 pg (25.0-35.0); Mean Corpuscular Volume 84 fL (80-100); Monocytes # (Auto) 1.4 Thou/mm3 (0.0-0.8); Monocytes % (Auto) 10 % (0-12); Neutrophils # (Auto) 11.6 Thou/mm3 (1.8-7.7); Neutrophils % (Auto) 77 % (37-80); Nucleated Red Blood Cell # 0.00 Thou/mm3 (0.00-0.00); Nucleated Red Blood Cell % 0 /100 WBC (0); Platelet Count 211 Thou/mm3 (140-440); RDW Standard Deviation 41.4 fL (35.1-43.9); Red Blood Count 5.04 Miln/mm3 (4.50-5.90); White Blood Count 15.1 Thou/mm3 (3.8-10.6)
[2025-07-08 06:41] LABS: Glucose Estimated Average 275 mg/dL (80-131); Hemoglobin A1C 11.2 % Hgb (4.8-6.0)
[2025-07-08 06:44] LABS: Alanine Aminotransferase 10 U/L (10-49); Albumin, Serum 3.9 gm/dL (3.5-5.0); Albumin/Globulin Ratio 1.4 (1.2-2.2); Alkaline Phosphatase 61 U/L (46-116); Anion Gap 10 (7-16); Aspartate Amino Transferase 16 U/L (0-34); BUN/Creatinine Ratio 10 Ratio (12-20); Bilirubin,Total 1.0 mg/dL (0.3-1.2); Blood Urea Nitrogen 8 mg/dL (9-23); Calcium 8.9 mg/dL (8.3-10.6); Calcium (Corrected) 9.0 mg/dL (8.5-10.1); Carbon Dioxide 25.6 mMol/L (20.0-31.0); Chloride 100 mMol/L (98-107); Creatinine (Component) 0.8 mg/dL (0.6-1.3); Estimated Creatinine Clearance 126.5 mL/min (>60); Globulin 2.8 gm/dL (2.3-3.5); Glucose 196 mg/dL (74-106); Magnesium 1.8 mg/dL (1.6-2.6); Osmolality,Calculated 275 (275-295); Phosphorous 1.3 mg/dL (2.4-5.1); Potassium 3.4 mMol/L (3.4-5.1); Sodium 136 mMol/L (136-145); Total Protein 6.7 gm/dL (5.7-8.2); eGFR > 60 See Note
[2025-07-08] MEDS: RINGERS LACTATED 1000 ML 1,000 ML 125 ML IV ×2 (09:04→17:42)
[2025-07-08] MEDS: VANCOMYCIN/WATER 1250 MG IVPB 250 ML 120 MG IV ×3 (09:05→21:33)
[2025-07-08] MEDS: cefTRIAXone 2 GM in SODIUM CHLORIDE 0.9% (Popper) 50 ML IV ×2 (09:06→20:13)
[2025-07-08] MEDS: ACETAMINOPHEN 325 MG TABLET 650 MG PO (09:17)
--- NOTE | 2025-07-08 11:20 | ESPR_ITS ---
Documentation for date of: 07/08/25 Subjective Subjective Interval history: Patient examined at bedside today. Patient reports he is open to getting a lumbar puncture today. Reports having recurrent fevers, denies any chest pain at this time. No other complaints at this time. Exam Vital Signs Temp Pulse Resp BP Pulse Ox O2 Del Method O2 Flow Rate 103.0 F H 92 18 164/98 H 96 Nasal Cannula 1 07/08/25 10:26 07/08/25 10:33 07/08/25 08:00 07/08/25 10:33 07/08/25 08:00 07/08/25 08:00 07/08/25 08:00 Narrative Exam General: In mild distress, morbidly obese male, eyes closed, HEENT: Pinpoint pupils, difficulty assessing extraocular motor movements Cardiovascular: S1, S2, radial pulses +2 bilat, RRR Pulmonary: CTAB bilat no cough, no wheezing GI: No tenderness to light or deep palpitation, no guarding, rigidity, rebound tenderness or distension Extremities: No presence of trace or pitting edema in lower extremities bilaterally, dorsalis pedis pulses +2 bilaterally Neuro: AAOx3, able to respond to questions appropriately Psych: Minimal cooperation Objective Labs 07/09/25 04:30 07/09/25 04:30 Labs: Laboratory Results - last 24 hr 07/07/25 07/07/25 07/07/25 13:29 16:23 17:11 WBC 13.7 H RBC 5.77 Hgb 15.9 Hct 47.0 MCV 82 MCH 27.6 MCHC 33.8 RDW Std Deviation 39.6 Plt Count 309 Neut % (Auto) 80 Lymph % (Auto) 10 [place] % (Auto) 9 Eos % (Auto) 0 Baso % (Auto) 0 Neut # (Auto) 10.9 H Lymph # (Auto) 1.4 [place] # (Auto) 1.2 H Eos # (Auto) 0.0 Baso # (Auto) 0.0 Immature Gran # (Auto) 0.06 H Absolute Nucleated RBC 0.00 Immature Gran % 0 Nucleated RBC % 0 PT 11.5 INR 1.1 APTT 25.6 Puncture Site ABG pH ABG pCO2 ABG pO2 ABG HCO3 ABG O2 Saturation ABG Base Excess FiO2 Sodium 136 Potassium 3.1 L Chloride 95 L Carbon Dioxide 27.8 Anion Gap 13 BUN 17 Creatinine 1.3 Estim Creat Clear Calc 83.2 eGFR > 60 BUN/Creatinine Ratio 13 [address]ucose [address] Glu mg/dL Hemoglobin A1c Calculated Osmolality 285 Lactic Acid 3.2 H 2.1 H Calcium 10.2 Corrected Calcium 10.2 H Phosphorus Magnesium 2.2 Total Bilirubin 1.4 H AST 16 ALT 12 Alkaline Phosphatase 79 Ammonia < 10 L Troponin I 0.034 B-Natriuretic Peptide 215 H Total Protein 8.4 H Albumin 4.9 Globulin 3.5 Albumin/Globulin Ratio 1.4 Beta-Hydroxybutyrate/Acetoacetate Procalcitonin 0.15 Ur Collection Type Clean Catch Urine Color Yellow Urine Clarity Clear Urine pH 6.5 Ur Specific [place] 1.029 Urine Protein 2+ A Urine Glucose (UA) 4+ A Urine Ketones 1+ A Urine Blood Trace Urine Nitrite Negative Urine Bilirubin Negative Urine Urobilinogen (Auto) Negative Ur Leukocyte Esterase Negative Urine RBC 1 Urine WBC 1 Ur Squamous Epith Cells < 1 Urine Bacteria None Ur Culture Indicated? Not Indicated Urine Opiates Screen Negative Urine Fentanyl Screen Negative Ur Barbiturates Screen Negative U Amphetamin/Meth Scrn Negative U Benzodiazepines Scrn Negative U Cocaine Metab Screen Negative U Marijuana (THC) Screen Negative Ethyl Alcohol < 3.0 07/07/25 07/07/25 07/08/25 19:36 20:55 05:17 WBC 15.1 H RBC 5.04 Hgb 14.0 Hct 42.4 MCV 84 MCH 27.8 MCHC 33.0 RDW Std Deviation 41.4 Plt Count 211 D Neut % (Auto) 77 Lymph % (Auto) 13 [place] % (Auto) 10 Eos % (Auto) 0 Baso % (Auto) 0 Neut # (Auto) 11.6 H Lymph # (Auto) 1.9 [place] # (Auto) 1.4 H Eos # (Auto) 0.0 Baso # (Auto) 0.1 Immature Gran # (Auto) 0.07 H Absolute Nucleated RBC 0.00 Immature Gran % 1 H Nucleated RBC % 0 PT INR APTT Puncture Site Right Radial ABG pH 7.42 ABG pCO2 43 ABG pO2 99 ABG HCO3 28 H ABG O2 Saturation 99 H ABG Base Excess 3 FiO2 21 Sodium 136 Potassium 3.4 Chloride 100 Carbon Dioxide 25.6 Anion Gap 10 BUN 8 L Creatinine 0.8 D Estim Creat Clear Calc 126.5 eGFR > 60 BUN/Creatinine Ratio 10 L Glucose [address] Glu mg/dL 275 H Hemoglobin A1c 11.2 H Calculated Osmolality 275 Lactic Acid Calcium 8.9 Corrected Calcium 9.0 Phosphorus 1.3 L Magnesium 1.8 Total Bilirubin 1.0 AST 16 ALT 10 Alkaline Phosphatase 61 D Ammonia Troponin I B-Natriuretic Peptide Total Protein 6.7 Albumin 3.9 D Globulin 2.8 Albumin/Globulin Ratio 1.4 Beta-Hydroxybutyrate/Acetoacetate 0.1 Procalcitonin Ur Collection Type Urine Color Urine Clarity Urine pH Ur Specific [place] Urine Protein Urine Glucose (UA) Urine Ketones Urine Blood Urine Nitrite Urine Bilirubin Urine Urobilinogen (Auto) Ur Leukocyte Esterase Urine RBC Urine WBC Ur Squamous Epith Cells Urine Bacteria Ur Culture Indicated? Urine Opiates Screen Urine Fentanyl Screen Ur Barbiturates Screen U Amphetamin/Meth Scrn U Benzodiazepines Scrn U Cocaine Metab Screen U Marijuana (THC) Screen Ethyl Alcohol ABG Interpretation ABG results: 07/07/25 19:36 ABG pH 7.42 ABG pCO2 43 ABG pO2 99 ABG HCO3 28 H ABG O2 Saturation 99 H ABG Base Excess 3 Quality Measures Quality Measures VTE prophylaxis and sepsis Current suspected stage: sepsis Possible source: GI tract/intra-abdominal and meningitis Blood cultures ordered: yes Antibiotic ordered: Yes Assessment & Plan Assessment Current Active Medications: Generic Name Dose Route Start Last Admin Trade Name Freq PRN Reason Stop Dose Admin Acetaminophen 650 mg 07/07/25 20:28 Acetaminophen 325 Mg Tablet PO 08/06/25 20:27 Q6H PRN PAIN SCALE 1-3 (mild Acetaminophen 650 mg 07/07/25 20:28 Acetaminophen 325 Mg Tablet PO 08/06/25 20:27 Q6H PRN Fever >100.4 Amlodipine Besylate 10 mg 07/08/25 09:00 07/08/25 09:07 Amlodipine Besylate 5 Mg Tablet PO 08/07/25 08:59 5 mg DAILY EVANGELINA Administration Dexamethasone Sodium Phosphate 10 mg 07/08/25 12:00 Dexamethasone Sod Phos Inj 10 Mg/Ml Vial IVP 08/07/25 11:59 Q6HR EVANGELINA Dextrose 25 ml 07/07/25 20:24 Dextrose 50%-Water Inj 50 Ml Syringe IV 08/06/25 20:23 Q15MIN PRN BG 50-70 responsive npo pt Dextrose 50 ml 07/07/25 20:24 Dextrose 50%-Water Inj 50 Ml Syringe IV 08/06/25 20:23 Q15MIN PRN BG <50 OR BG <70 & pt unresponsive Glucagon 1 mg 07/07/25 20:24 Glucagon Inj 1 Mg Vial IM Q15MIN PRN BG <70, and no IV access Heparin Sodium (Porcine) 5,000 unit 07/07/25 23:30 07/08/25 05:31 Heparin Sod Inj 5000 Unit/Ml Vial SC 07/21/25 23:29 5,000 unit Q8HR EVANGELINA Administration Ceftriaxone Sodium 2 gm/ 50 mls @ 100 mls/hr 07/07/25 21:00 07/08/25 09:36 Sodium Chloride IV 07/14/25 20:59 Infused Q12HR EVANGELINA Infusion Ampicillin Sodium 2,000 mg/ 100 mls @ 200 mls/hr 07/07/25 17:52 07/08/25 10:14 Sodium Chloride IV 07/14/25 17:51 200 mls/hr Q4HR EVANGELINA Administration Acyclovir Sodium 700 mg/ 114 mls @ 114 mls/hr 07/08/25 14:00 Sodium Chloride IV 07/14/25 21:59 Q8HR EVANGELINA Lactated Ringer's 1,000 mls @ 125 mls/hr 07/07/25 23:26 07/08/25 09:04 Lactated Ringers IV 08/06/25 23:25 125 mls/hr .Q8H EVANGELINA Administration Vancomycin HCl 250 mls @ 120 mls/hr 07/08/25 08:00 07/08/25 09:05 Vancomycin/Water 1250 Mg Ivpb IV 07/15/25 07:59 120 mls/hr Q8HR EVANGELINA Administration Protocol Insulin Human Lispro 0 unit 07/08/25 00:00 07/08/25 06:17 Insulin Lispro (Admelog) 1 Unit/0.01 Ml Unit SC 08/07/25 00:00 1 unit Q6HR EVANGELINA Administration Protocol Ondansetron HCl 4 mg 07/07/25 20:28 Ondansetron Inj 2 Mg/Ml Inj 2 Ml IVP 08/06/25 20:27 Q6H PRN NAUSEA OR VOMITING Protocol Pantoprazole Sodium 40 mg 07/08/25 09:00 07/08/25 09:16 Pantoprazole Inj 40 Mg Vial IVP 08/07/25 08:59 40 mg QDAY EVANGELINA Administration Pharmacy Consult 1 each 07/08/25 09:00 Vancomycin Pharmacy To Dose 1 Each Each IV 08/07/25 08:59 QDAY PRN PROTOCOL Plan Assessment: Anshul is a 54 y/o male with PMHx of morbid obesity comes in for an evaluation of sepsis and acute encephalopathy. #Acute encephalopathy DDx: Infectious, drug-induced, metabolic Likely infectious source at this time due to patient meeting septic criteria Temperature of 105, likely related to possible meningitis, however the patient did not complain of the headache Will need to cover for bacterial and viral meningitis at this time Lumbar puncture successfully performed, however will need to correct fluid analysis and RBCs as patient had a traumatic tap and all 4 sample appear to be bloody Cocci IgM negative Plan: ? Antipyretics ? Lumbar puncture ? CSF THERESA, Gram stain, cell count, HSV, VDRL, West Nile, myelin, oligoclonal, cocci, enterovirus ? Rocephin 2 g IV twice daily ? Vancomycin ? Ampicillin 2 g IV every 4 hours ? Acyclovir IV 10 mg/kg every 8 hours ? Follow-up blood cultures #History of hypertension #History of type 2 diabetes mellitus Above handled by primary hospitalist team Patient seen and care discussed with my attending physician, Dr. Yunior Avery, PGY-2 This document was transcribed using voice recognition technology. Minor inaccuracies may be present. Attending Provider Attestation/Addendum I personally have seen and examined the patient at the bedside and agreed with resident's findings, assessment and plan of care. As the patient continues to fever spikes, he underwent lumbar puncture today to evaluate further. Continue with antibiotics until culture comes back. Patient's mental status is back to baseline, no focal neurological deficit noted on exam.
[2025-07-08 11:27] LABS: HIV (1&2) Antibody Rapid Non-Reactive
[2025-07-08 11:38] LABS: Cocci Serology, IgM Negative (Negative)
[2025-07-08] MEDS: DEXAMETHASONE SOD PHOS INJ 10 MG/ML VIAL IVP ×3 (12:23→23:43)
[2025-07-08 13:32] LABS: Coccid Serology, CF CSF (UCD)* See Sep Rpt
--- NOTE | 2025-07-08 13:33 | ESPR_ITS ---
<Statement entered by Jose Robles MD - 07/08/25 21:04> Overnight admission. Seen and examined at bedside and patient endorsed chills and fever. States that he has not had any sick contacts, recent travel, spending bodies of water. Also denies abdominal pain, urinary symptoms, sore throat, cough, vision changes, hearing changes. However, he does endorse a posterior headache. He remained febrile throughout the day and added ibuprofen as second agent if fevers do not resolve with Tylenol. Lumbar puncture obtained and was read and turbid, 150 WBC, 200,000 RBC, elevated glucose and total protein. Appreciate neurology recommendations. ----- Note reviewed and agree with care plan as documented. Please refer to the note below for further details. Plan discussed with attending physician Dr. Elysia Robles MD PGY-2 Internal Medicine Documentation for date of: 07/08/25 Subjective Subjective Interval history: Patient had lumbar puncture today. Patient has been having fevers and receiving Tylenol and ibuprofen as needed. Patient was in hypertensive emergency with a BP of 182/104, BP went down to 154/82 with no intervention. WBC kait from 13- 15, lactic acid trended downwards. Gallbladder ultrasound was negative for stones. Will follow-up additional CSF results. Exam Vital Signs Temp Pulse Resp BP Pulse Ox O2 Del Method O2 Flow Rate 100.9 F H 90 17 167/90 H 96 Nasal Cannula 1 07/08/25 12:07/08/25 12:07/08/25 12:07/08/25 12:00 07/08/25 12:07/08/25 12:07/08/25 12:00 Narrative Exam General: Appears uncomfortable. Conversational and non-toxic appearing. Neurologic: GCS 12. Oriented to person place and time, no gross neurological deficit, and patient able to move all 4 extremities. HEENT: Brudzinski negative, Normocephalic, atraumatic, mucous membranes moist. Pupils reactive to light. Heart: Regular rate and rhythm, normal S1 and S2, no murmurs. Lungs: Clear to auscultation bilaterally with no wheezing or crackles. Abdomen: Obese, soft, nondistended, nontender, positive bowel sounds. No guarding or rebound tenderness. Extremities: No edema. 2+ radial and dorsalis pedis pulses bilaterally. Skin: Warm. Dry. No rash or ecchymoses. Objective Labs 07/09/25 04:30 07/09/25 04:30 Labs: Laboratory Results - last 24 hr 07/07/25 07/07/25 07/07/25 13:29 16:23 17:11 WBC 13.7 H RBC 5.77 Hgb 15.9 Hct 47.0 MCV 82 MCH 27.6 MCHC 33.8 RDW Std Deviation 39.6 Plt Count 309 Neut % (Auto) 80 Lymph % (Auto) 10 [place] % (Auto) 9 Eos % (Auto) 0 Baso % (Auto) 0 Neut # (Auto) 10.9 H Lymph # (Auto) 1.4 [place] # (Auto) 1.2 H Eos # (Auto) 0.0 Baso # (Auto) 0.0 Immature Gran # (Auto) 0.06 H Absolute Nucleated RBC 0.00 Immature Gran % 0 Nucleated RBC % 0 PT 11.5 INR 1.1 APTT 25.6 Puncture Site ABG pH ABG pCO2 ABG pO2 ABG HCO3 ABG O2 Saturation ABG Base Excess FiO2 Sodium 136 Potassium 3.1 L Chloride 95 L Carbon Dioxide 27.8 Anion Gap 13 BUN 17 Creatinine 1.3 Estim Creat Clear Calc 83.2 eGFR > 60 BUN/Creatinine Ratio 13 Glucose [address] Glu mg/dL Hemoglobin A1c Calculated Osmolality 285 Lactic Acid 3.2 H 2.1 H Calcium 10.2 Corrected Calcium 10.2 H Phosphorus Magnesium 2.2 Total Bilirubin 1.4 H AST 16 ALT 12 Alkaline Phosphatase 79 Ammonia < 10 L Troponin I 0.034 B-Natriuretic Peptide 215 H Total Protein 8.4 H Albumin 4.9 Globulin 3.5 Albumin/Globulin Ratio 1.4 Beta-Hydroxybutyrate/Acetoacetate Procalcitonin 0.15 Ur Collection Type Clean Catch Urine Color Yellow Urine Clarity Clear Urine pH 6.5 Ur Specific [place] 1.029 Urine Protein 2+ A Urine Glucose (UA) 4+ A Urine Ketones 1+ A Urine Blood Trace Urine Nitrite Negative Urine Bilirubin Negative Urine Urobilinogen (Auto) Negative Ur Leukocyte Esterase Negative Urine RBC 1 Urine WBC 1 Ur Squamous Epith Cells < 1 Urine Bacteria None Ur Culture Indicated? Not Indicated Urine Opiates Screen Negative Urine Fentanyl Screen Negative Ur Barbiturates Screen Negative U Amphetamin/Meth Scrn Negative U Benzodiazepines Scrn Negative U Cocaine Metab Screen Negative U Marijuana (THC) Screen Negative Ethyl Alcohol < 3.0 Coccidioides IgM Ab HIV 1&2 Antibody Rapid 07/07/25 07/07/25 07/08/25 19:36 20:55 05:17 WBC 15.1 H RBC 5.04 Hgb 14.0 Hct 42.4 MCV 84 MCH 27.8 MCHC 33.0 RDW Std Deviation 41.4 Plt Count 211 D Neut % (Auto) 77 Lymph % (Auto) 13 [place] % (Auto) 10 Eos % (Auto) 0 Baso % (Auto) 0 Neut # (Auto) 11.6 H Lymph # (Auto) 1.9 [place] # (Auto) 1.4 H Eos # (Auto) 0.0 Baso # (Auto) 0.1 Immature Gran # (Auto) 0.07 H Absolute Nucleated RBC 0.00 Immature Gran % 1 H Nucleated RBC % 0 PT INR APTT Puncture Site Right Radial ABG pH 7.42 ABG pCO2 43 ABG pO2 99 ABG HCO3 28 H ABG O2 Saturation 99 H ABG Base Excess 3 FiO2 21 Sodium 136 Potassium 3.4 Chloride 100 Carbon Dioxide 25.6 Anion Gap 10 BUN 8 L Creatinine 0.8 D Estim Creat Clear Calc 126.5 eGFR > 60 BUN/Creatinine Ratio 10 L Glucose [address] Glu mg/dL 275 H Hemoglobin A1c 11.2 H Calculated Osmolality 275 Lactic Acid Calcium 8.9 Corrected Calcium 9.0 Phosphorus 1.3 L Magnesium 1.8 Total Bilirubin 1.0 AST 16 ALT 10 Alkaline Phosphatase 61 D Ammonia Troponin I B-Natriuretic Peptide Total Protein 6.7 Albumin 3.9 D Globulin 2.8 Albumin/Globulin Ratio 1.4 Beta-Hydroxybutyrate/Acetoacetate 0.1 Procalcitonin Ur Collection Type Urine Color Urine Clarity Urine pH Ur Specific [place] Urine Protein Urine Glucose (UA) Urine Ketones Urine Blood Urine Nitrite Urine Bilirubin Urine Urobilinogen (Auto) Ur Leukocyte Esterase Urine RBC Urine WBC Ur Squamous Epith Cells Urine Bacteria Ur Culture Indicated? Urine Opiates Screen Urine Fentanyl Screen Ur Barbiturates Screen U Amphetamin/Meth Scrn U Benzodiazepines Scrn U Cocaine Metab Screen U Marijuana (THC) Screen Ethyl Alcohol Coccidioides IgM Ab Negative HIV 1&2 Antibody Rapid Non-Reactive ABG Interpretation ABG results: 07/07/25 19:36 ABG pH 7.42 ABG pCO2 43 ABG pO2 99 ABG HCO3 28 H ABG O2 Saturation 99 H ABG Base Excess 3 Quality Measures Quality Measures VTE prophylaxis and sepsis Current suspected stage: ruled out Possible source: GI tract/intra-abdominal and meningitis Blood cultures ordered: yes Antibiotic ordered: Yes Assessment & Plan Assessment Current Active Medications: Generic Name Dose Route Start Last Admin Trade Name Freq PRN Reason Stop Dose Admin Acetaminophen 1,000 mg 07/08/25 13:23 Acetaminophen 500 Mg Tablet PO 08/06/25 20:27 Q6H PRN PAIN OR FEVER > 100.4 Amlodipine Besylate 10 mg 07/08/25 09:00 07/08/25 09:07 Amlodipine Besylate 5 Mg Tablet PO 08/07/25 08:59 5 mg DAILY EVANGELINA Administration Dexamethasone Sodium Phosphate 10 mg 07/08/25 12:00 07/08/25 12:23 Dexamethasone Sod Phos Inj 10 Mg/Ml Vial IVP 08/07/25 11:59 10 mg Q6HR EVANGELINA Administration Dextrose 25 ml 07/07/25 20:24 Dextrose 50%-Water Inj 50 Ml Syringe IV 08/06/25 20:23 Q15MIN PRN BG 50-70 responsive npo pt Dextrose 50 ml 07/07/25 20:24 Dextrose 50%-Water Inj 50 Ml Syringe IV 08/06/25 20:23 Q15MIN PRN BG <50 OR BG <70 & pt unresponsive Glucagon 1 mg 07/07/25 20:24 Glucagon Inj 1 Mg Vial IM Q15MIN PRN BG <70, and no IV access Heparin Sodium (Porcine) 5,000 unit 07/07/25 23:30 07/08/25 05:31 Heparin Sod Inj 5000 Unit/Ml Vial SC 07/21/25 23:29 5,000 unit Q8HR EVANGELINA Administration Ceftriaxone Sodium 2 gm/ 50 mls @ 100 mls/hr 07/07/25 21:00 07/08/25 09:36 Sodium Chloride IV 07/14/25 20:59 Infused Q12HR EVANGELINA Infusion Ampicillin Sodium 2,000 mg/ 100 mls @ 200 mls/hr 07/07/25 17:52 07/08/25 10:14 Sodium Chloride IV 07/14/25 17:51 200 mls/hr Q4HR EVANGELINA Administration Acyclovir Sodium 700 mg/ 114 mls @ 114 mls/hr 07/08/25 14:00 Sodium Chloride IV 07/14/25 21:59 Q8HR EVANGELINA Lactated Ringer's 1,000 mls @ 125 mls/hr 07/07/25 23:26 07/08/25 09:04 Lactated Ringers IV 08/06/25 23:25 125 mls/hr .Q8H EVANGELINA Administration Vancomycin HCl 250 mls @ 120 mls/hr 07/08/25 08:00 07/08/25 09:05 Vancomycin/Water 1250 Mg Ivpb IV 07/15/25 07:59 120 mls/hr Q8HR EVANGELINA Administration Protocol Ibuprofen 400 mg 07/08/25 13:22 Ibuprofen Tab 400 Mg Tablet PO 08/07/25 13:21 Q6HR PRN Fever > 100.4 Insulin Human Lispro 0 unit 07/08/25 00:00 07/08/25 12:23 Insulin Lispro (Admelog) 1 Unit/0.01 Ml Unit SC 08/07/25 00:00 Not Given Q6HR EVANGELINA Protocol Ondansetron HCl 4 mg 07/07/25 20:28 Ondansetron Inj 2 Mg/Ml Inj 2 Ml IVP 08/06/25 20:27 Q6H PRN NAUSEA OR VOMITING Protocol Pantoprazole Sodium 40 mg 07/08/25 09:00 07/08/25 09:16 Pantoprazole Inj 40 Mg Vial IVP 08/07/25 08:59 40 mg QDAY EVANGELINA Administration Pharmacy Consult 1 each 07/08/25 09:00 Vancomycin Pharmacy To Dose 1 Each Each IV 08/07/25 08:59 QDAY PRN PROTOCOL Plan Anshul Jaramillo is a 54-year-old male with past medical history of type 2 diabetes mellitus and hypertension who presents to [facility] ED on 07/07/2025 with weakness and confusion for the last few days. Admitted for acute encephalopathy evaluation and management #Acute encephalopathy DDx: Infectious, drug-induced, metabolic * Likely infectious source at this time due to patient meeting septic criteria with temperature of 105, tachycardic 109 and WBC 13.7 on arrival. * Suspicion for possible meningitis, however the patient did not complain of the headache, neck stiffness. * Brudzinski sign is negative for the patient continues to have fevers and complains of head and neck pain * CT abdomen pelvis showed minimal perinephric stranding and mild thickening of urinary bladder wall, UA was negative patient has no urinary symptoms. * Will need to cover for bacterial and viral meningitis at this time, hence on rocephin, vancomycin, ampicillin, and acyclovir for meningitis treatment. Less likely drug-induced as UTOX is negative and substance are monitored in [facility]. * Initial CSF analysis showed a protein of over 250, glucose 98, red appearance. * HIV serology negative Plan: ? Follow-up CSF for: Culture and Gram stain, enterovirus, angiotensin-converting enzyme, myelin basic protein, VDRL, and West Nile virus ? Dexamethasone 10 mg every 6 hours ? Antipyretics: Tylenol and ibuprofen ? Continue Rocephin 2 g IV twice daily ? Continue Vancomycin ? Continue Ampicillin 2 g IV every 4 hours ? Continue Acyclovir IV 10 mg/kg every 8 hours ? Cocci IgM pending - Blood culture pending - Neurology consulted, recommendation appreciated #Type 2 diabetes mellitus * On admission glucose 321. * A1c 11.2 * Home medication glipizide 10 mg, metformin 1000 p.o. twice daily, holding for now Plan: - Glucose checks ACHS - Continue insulin sliding scale #History of hypertension #Hypertensive emergency * Home medication amlodipine 10 mg p.o. daily * Patient was in hypertensive emergency with a BP of 182/104 in the afternoon of 07/08/2025, BP went down to 154/82 with no intervention. Plan: - Resume home amlodipine 10 mg daily ? Labetalol 10 mg IV as needed for SBP over 180 with a heart rate of at least 65 Hospital management: Lines: Peripheral IV Diet: Passed nursing swallow screen, started cardiac diet GI prophylaxis: Pantoprazole DVT prophylaxis: Heparin SC Disposition: Patient underwent lumbar puncture today. Follow-up CSF results. Continue ibuprofen and Tylenol as needed for fevers. Labetalol on board as needed for hypertensive emergency. CODE STATUS: Full code Patient was seen and discussed with my attending physician Dr. Naidu and my senior resident Dr. Travis BEYER PGY-2. Rajeev Florentino DO PGY-1. Attending Provider Attestation/Addendum Cheryl Floyd DO, attest that I was physically present for the villagomez portions of the service and evaluated the patient with the resident and I reviewed and discussed the case with the resident and agree with the resident's findings and plans of care as documented above Patient seen and eval this a.m. Patient is alert and oriented x 3. He states that he is very tired. Patient does not recall how he ended up in the hospital last night. He states that he has been feeling unwell for over 7 days. He does have grandchildren at home, but denies any sick contacts. He denies any recent URI symptoms. He reports some pain in his neck, but has a negative Kernig sign. LP had been attempted in the ED, but unsuccessful. Patient is pending repeat LP at this time. He is currently on Decadron, Rocephin, ampicillin, vancomycin and acyclovir due to concern for viral versus bacterial meningitis. CT head was negative for any acute findings. Will follow-up with neurology recommendations. Will narrow antibacterial/antiviral treatment as per CSF results. Will also order HIV testing and cocci pending. Will also order HSV and West Nile. Patient continues to have fevers. Also follow-up with blood and CSF cultures. He denies any recent travel. 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 He denies any recent hospitalizations either.
[2025-07-08 13:53] LABS: CSF Mononuclear 36.6 %; CSF White Blood Cell 150 /cmm
[2025-07-08 13:54] LABS: CSF Cell Count Tube # Tube # 4
[2025-07-08 13:55] LABS: CSF Color Red (Colorless)
[2025-07-08 13:56] LABS: CSF Red Blood Cell 204000 /cmm
[2025-07-08 13:57] LABS: CSF Polynuclear WBC 64.4 %
[2025-07-08 13:59] LABS: Glucose,CSF 98 mg/dL (40-70); Protein Total,CSF > 250 mg/dL (8-32)
[2025-07-08 14:01] LABS: CSF, Appearance Turbid (Clear)
[2025-07-08] MEDS: NAPH,KPH MBDB 1 PACKET (1.5 GM) 2 PACKET PO (14:18)
[2025-07-08 14:39] LABS: Ag, Group B Strep Negative (Negative); Ag, H Influenza B Negative (Negative); Ag, N Mening B/Ecoli K1 Negative (Negative); Ag, N Meningitidis ACY W135 Negative (Negative); Ag, Strep Pneumonia Negative (Negative); CSF Gram Stain Alert Gram Stain Completed
--- NOTE | 2025-07-08 14:53 | PC.SS ---
Patient is alert/oriented. Patient confirmed demographics. Patient was admitted for acute encephalopathy. Patient resides with parents. Patient was independent with ADL's. No DME. Patient is currently on 02. Patient does not have 02 at home. Patient PCP: Dr. Garcia. Last appt. was last month. Pharmacy: [facility]. SS spoke to PT who recommended HH and DME. SS discussed with patient and family. Patient will discuss with family. Patient was driving himself to appt's. He has diabetes. Possesses a glucometer. alt medical decision maker: SisterDinah, D/c plan: HH vs SNF
--- NOTE | 2025-07-08 16:12 | PC.PT ---
Patient is safe to transfer to a bedside commode with 1 staff and a FWW. RN made aware.
[2025-07-08] MEDS: ACETAMINOPHEN 500 MG TABLET 1000 MG PO (16:36)
[2025-07-09] VITALS (10 sets, daily range): BP systolic 144–165; BP diastolic 83–108; PULSE 18–89; RESP 12–71; TEMP 36.1–37.6; O2SAT 93–100
[2025-07-09] MEDS: Ampicillin Inj 2,000 MG in SODIUM CHLORIDE 0.9% (POP) 100 ML 200 MG IV ×6 (01:19→21:02)
[2025-07-09] MEDS: RINGERS LACTATED 1000 ML 1,000 ML 125 ML IV ×4 (02:10→21:05)
[2025-07-09] MEDS: ACYCLOVIR INJ 700 MG in SODIUM CHLORIDE 0.9% 100 ML 114 MG IV ×3 (05:06→21:03)
[2025-07-09] MEDS: DEXAMETHASONE SOD PHOS INJ 10 MG/ML VIAL IVP ×3 (05:07→17:11)
[2025-07-09 06:01] LABS: Basophils # (Auto) 0.0 Thou/mm3 (0.0-0.2); Basophils % (Auto) 0 % (0-2.5); Eosinophils # (Auto) 0.0 Thou/mm3 (0.0-0.5); Eosinophils % (Auto) 0 % (0-10); Hematocrit 45.4 % (41.0-53.0); Hemoglobin 15.3 g/dL (13.5-16.0); Immature Granulocytes Auto 0.07 Thou/mm3 (0.00-0.00); Lymphocytes # (Auto) 1.4 Thou/mm3 (1.0-4.8); Lymphocytes % (Auto) 10 % (10-50); Mean Corpuscular HGB Conc 33.7 g/dl (31.0-37.0); Mean Corpuscular Hemoglobin 27.8 pg (25.0-35.0); Mean Corpuscular Volume 83 fL (80-100); Monocytes # (Auto) 0.3 Thou/mm3 (0.0-0.8); Monocytes % (Auto) 2 % (0-12); Neutrophils # (Auto) 12.5 Thou/mm3 (1.8-7.7); Neutrophils % (Auto) 88 % (37-80); Nucleated Red Blood Cell # 0.00 Thou/mm3 (0.00-0.00); Nucleated Red Blood Cell % 0 /100 WBC (0); Platelet Count 149 Thou/mm3 (140-440); RDW Standard Deviation 39.1 fL (35.1-43.9); Red Blood Count 5.50 Miln/mm3 (4.50-5.90); White Blood Count 14.2 Thou/mm3 (3.8-10.6)
[2025-07-09 06:30] LABS: Alanine Aminotransferase 12 U/L (10-49); Albumin, Serum 4.0 gm/dL (3.5-5.0); Albumin/Globulin Ratio 1.3 (1.2-2.2); Alkaline Phosphatase 65 U/L (46-116); Anion Gap 14 (7-16); Aspartate Amino Transferase 26 U/L (0-34); BUN/Creatinine Ratio 10 Ratio (12-20); Bilirubin,Total 1.0 mg/dL (0.3-1.2); Blood Urea Nitrogen 9 mg/dL (9-23); Calcium 9.0 mg/dL (8.3-10.6); Calcium (Corrected) 9.0 mg/dL (8.5-10.1); Carbon Dioxide 23.7 mMol/L (20.0-31.0); Chloride 98 mMol/L (98-107); Creatinine (Component) 0.9 mg/dL (0.6-1.3); Estimated Creatinine Clearance 112.4 mL/min (>60); Globulin 3.2 gm/dL (2.3-3.5); Glucose 240 mg/dL (74-106); Magnesium 1.8 mg/dL (1.6-2.6); Osmolality,Calculated 278 (275-295); Phosphorous 2.9 mg/dL (2.4-5.1); Potassium 3.7 mMol/L (3.4-5.1); Sodium 136 mMol/L (136-145); Total Protein 7.2 gm/dL (5.7-8.2); Vancomycin,Trough 18.7 mcg/mL (5.0-10.0); eGFR > 60 See Note
[2025-07-09] MEDS: VANCOMYCIN/WATER 1250 MG IVPB 250 ML 120 MG IV (06:33)
--- NOTE | 2025-07-09 07:00 | PD.EVENT ---
Documentation for date of: 07/08/25 Date of procedure: 07/08/25 Pre-op diagnosis: meningitia/encephalitis Post-op diagnosis: Same Consent signed by: patient Position: lateral decubitus and sitting Prep: betadine Anesthesia: 1 % Lidocaine Sedation: none Needle size: 22ga Needle length: other (5) Interspace: L3-4 Number of attempts: 3 Opening pressure: not done Fluids mLs collected: 16 Fluid description: bloody Complications: No Patient tolerance: Good Procedure performed by: Herbert Mojica Condition: Stable Disposition: no change
[2025-07-09] MEDS: INSULIN LISPRO (AdmeLOG) 1 UNIT/0.01 ML UNIT SC ×4 (07:49→20:16)
[2025-07-09 10:17] LABS: Cocci Serology, IgG Negative (Negative)
[2025-07-09] MEDS: cefTRIAXone 2 GM in SODIUM CHLORIDE 0.9% (Popper) 50 ML IV ×2 (10:34→20:03)
--- NOTE | 2025-07-09 11:37 | PD.RESPRO ---
Documentation for date of: 07/09/25 Subjective Subjective Interval history: Patient examined at bedside today. Patient reports he is doing well, no acute overnight events including no fevers. Patient says that he feels a bit tired today. He says that he does not use a CPAP at home. He denies any headache or fevers at this time. He has no other complaints at this time. Exam Vital Signs Temp Pulse Resp BP Pulse Ox O2 Del Method O2 Flow Rate 99.5 F 80 13 159/101 H 98 Nasal Cannula 2 07/09/25 08:00 07/09/25 10:34 07/09/25 08:00 07/09/25 10:34 07/09/25 08:00 07/09/25 08:00 07/09/25 08:00 Narrative Exam General: AAOx3, NAD, sleepy and lethargic, morbidly obese male HEENT: Dry mucous membranes, conjunctiva clear, EOMI, PERRLA, Cardiovascular: S1, S2, radial pulses +2 bilat, RRR Pulmonary: CTAB bilat no cough, no wheezing GI: No tenderness to light or deep palpitation, no guarding, rigidity, rebound tenderness or distension Extremities: No presence of trace or pitting edema in lower extremities bilaterally, dorsalis pedis pulses +2 bilaterally Neuro: AAOx3, no focal motor or sensory deficits in the UE or LE bilat Psych: Cooperative Objective Labs 07/10/25 04:44 07/10/25 04:44 Labs: Laboratory Results - last 24 hr 07/08/25 07/08/25 07/09/25 05:17 13:00 04:30 WBC 14.2 H RBC 5.50 Hgb 15.3 Hct 45.4 MCV 83 MCH 27.8 MCHC 33.7 RDW Std Deviation 39.1 Plt Count 149 D Neut % (Auto) 88 H Lymph % (Auto) 10 [place] % (Auto) 2 Eos % (Auto) 0 Baso % (Auto) 0 Neut # (Auto) 12.5 H Lymph # (Auto) 1.4 [place] # (Auto) 0.3 Eos # (Auto) 0.0 Baso # (Auto) 0.0 Immature Gran # (Auto) 0.07 H Absolute Nucleated RBC 0.00 Immature Gran % 1 H Nucleated RBC % 0 Sodium 136 Potassium 3.7 Chloride 98 Carbon Dioxide 23.7 Anion Gap 14 BUN 9 Creatinine 0.9 Estim Creat Clear Calc 112.4 eGFR > 60 BUN/Creatinine Ratio 10 L Glucose 240 H Calculated Osmolality 278 Calcium 9.0 Corrected Calcium 9.0 Phosphorus 2.9 Magnesium 1.8 Total Bilirubin 1.0 AST 26 ALT 12 Alkaline Phosphatase 65 Total Protein 7.2 Albumin 4.0 Globulin 3.2 Albumin/Globulin Ratio 1.3 CSF Appearance Turbid A CSF Color Red A CSF WBC 150 CSF RBC 136369 CSF Cell Count Tube # Tube # 4 CSF Mononuclear WBCs 36.6 CSF Polynuclear WBCs 64.4 CSF Glucose 98 H CSF Total Protein > 250 H CSF H.influenzae B Ag Negative CSF N.meningit ACY/W135 Negative CSF N.mening B/E.coli K1 Negative CSF Strep B Antigen Negative CSF Strep pneumoniae Ag Negative Vancomycin Trough 18.7 H Coccidioides IgG Ab Negative Coccidioides IgM Ab Negative ABG Interpretation ABG results: 07/07/25 19:36 ABG pH 7.42 ABG pCO2 43 ABG pO2 99 ABG HCO3 28 H ABG O2 Saturation 99 H ABG Base Excess 3 Quality Measures Quality Measures VTE prophylaxis and sepsis Current suspected stage: sepsis Possible source: GI tract/intra-abdominal and meningitis Blood cultures ordered: yes Antibiotic ordered: Yes Assessment & Plan Assessment Current Active Medications: Generic Name Dose Route Start Last Admin Trade Name Freq PRN Reason Stop Dose Admin Acetaminophen 1,000 mg 07/08/25 13:23 07/08/25 16:36 Acetaminophen 500 Mg Tablet PO 08/06/25 20:27 1,000 mg Q6H PRN Administration PAIN OR FEVER > 100.4 Amlodipine Besylate 10 mg 07/08/25 09:00 07/09/25 10:34 Amlodipine Besylate 5 Mg Tablet PO 08/07/25 08:59 10 mg DAILY EVANGELINA Administration Dexamethasone Sodium Phosphate 10 mg 07/08/25 12:00 07/09/25 05:07 Dexamethasone Sod Phos Inj 10 Mg/Ml Vial IVP 08/07/25 11:59 10 mg Q6HR EVANGELINA Administration Dextrose 25 ml 07/07/25 20:24 Dextrose 50%-Water Inj 50 Ml Syringe IV 08/06/25 20:23 Q15MIN PRN BG 50-70 responsive npo pt Dextrose 50 ml 07/07/25 20:24 Dextrose 50%-Water Inj 50 Ml Syringe IV 08/06/25 20:23 Q15MIN PRN BG <50 OR BG <70 & pt unresponsive Glucagon 1 mg 07/07/25 20:24 Glucagon Inj 1 Mg Vial IM Q15MIN PRN BG <70, and no IV access Heparin Sodium (Porcine) 5,000 unit 07/07/25 23:30 07/08/25 15:03 Heparin Sod Inj 5000 Unit/Ml Vial SC 07/21/25 23:29 Not Given Q8HR EVANGELINA Ceftriaxone Sodium 2 gm/ 50 mls @ 100 mls/hr 07/07/25 21:00 07/09/25 10:34 Sodium Chloride IV 07/14/25 20:59 100 mls/hr Q12HR EVANGELINA Administration Ampicillin Sodium 2,000 mg/ 100 mls @ 200 mls/hr 07/07/25 17:52 07/09/25 10:35 Sodium Chloride IV 07/14/25 17:51 200 mls/hr Q4HR EVANGELINA Administration Acyclovir Sodium 700 mg/ 114 mls @ 114 mls/hr 07/08/25 14:00 07/09/25 05:06 Sodium Chloride IV 07/14/25 21:59 114 mls/hr Q8HR EVANGELINA Administration Lactated Ringer's 1,000 mls @ 125 mls/hr 07/07/25 23:26 07/09/25 07:40 Lactated Ringers IV 08/06/25 23:25 125 mls/hr .Q8H EVANGELINA Administration Vancomycin/Sodium Chloride 200 mls @ 100 mls/hr 07/09/25 14:00 Vancomycin/Ns 1 Gm Ivpb IV 07/16/25 13:59 Q8HR EVANGELINA Ibuprofen 400 mg 07/08/25 13:22 Ibuprofen Tab 400 Mg Tablet PO 08/07/25 13:21 Q6HR PRN Fever > 100.4 Insulin Human Lispro 0 unit 07/08/25 22:50 07/09/25 07:49 Insulin Lispro (Admelog) 1 Unit/0.01 Ml Unit SC 08/07/25 22:49 3 unit ACHS EVANGELINA Administration Protocol Labetalol HCl 10 mg 07/08/25 17:18 Labetalol Inj 5 Mg/Ml Vial 20 Ml IVP 08/07/25 17:17 X1 PRN SBP >/= 180 with HR>65 Lisinopril 10 mg 07/09/25 09:00 07/09/25 10:33 Lisinopril 2.5 Mg Tablet PO 08/08/25 08:59 10 mg DAILY EVANGELINA Administration Ondansetron HCl 4 mg 07/07/25 20:28 Ondansetron Inj 2 Mg/Ml Inj 2 Ml IVP 08/06/25 20:27 Q6H PRN NAUSEA OR VOMITING Protocol Pantoprazole Sodium 40 mg 07/08/25 09:00 07/09/25 10:35 Pantoprazole Inj 40 Mg Vial IVP 08/07/25 08:59 40 mg QDAY EVANGELINA Administration Pharmacy Consult 1 each 07/08/25 09:00 Vancomycin Pharmacy To Dose 1 Each Each IV 08/07/25 08:59 QDAY PRN PROTOCOL Plan Assessment: Anshul is a 54 y/o male with PMHx of morbid obesity comes in for an evaluation of sepsis and acute encephalopathy. #Acute encephalopathy DDx: Infectious, drug-induced, metabolic Likely infectious source at this time due to patient meeting septic criteria Temperature of 105, likely related to possible meningitis, however the patient did not complain of the headache Will need to cover for bacterial and viral meningitis at this time Lumbar puncture successfully performed, however will need to correct fluid analysis and RBCs as patient had a traumatic tap and all 4 sample appear to be bloody Cocci IgM and IgG negative CSF Gram stain shows no white blood cells or organisms seen, however all 4 tubes of sample were blood-tinged and had RBCs Considering this, we are unsure how much CSF fluid is in each sample and if there is enough plasma for ending to be detected including anything infectious, and white blood cells White blood cell corrected for RBCs shows level of 148 Initial CSF cultures negative including Neisseria, haemophilus however will need to follow-up with additional studies CSF glucose 98, protein 250 could indicate fungal cause however cocci is negative at this time Blood cultures no growth after 1 day Plan: ? Antipyretics ? Will consider MRI ? Follow-up CSF results ? Rocephin 2 g IV twice daily ? Vancomycin ? Ampicillin 2 g IV every 4 hours ? Acyclovir IV 10 mg/kg every 8 hours 6 ? Follow-up blood cultures #History of hypertension #History of type 2 diabetes mellitus Above handled by primary hospitalist team Patient seen and care discussed with my attending physician, Dr. Yunior Avery, PGY-2 This document was transcribed using voice recognition technology. Minor inaccuracies may be present. Attending Provider Attestation/Addendum I personally have seen and examined the patient at the bedside and agreed with resident's findings, assessment and plan of care. No more fever spikes noted. Patient denies any complaints including headache or dizziness. Continue with antibiotics until culture comes back. We did send CSF for fungal culture. Upon correcting because of RBCs in CSF, protein level turned to be not significant. Patient's mental status is back to baseline, no focal neurological deficit noted on exam. As he has symptoms and signs consistent with obstructive sleep apnea, will consider using CPAP tonight as he agreed to it. He would need to get sleep study for confirmation as an outpatient
--- NOTE | 2025-07-09 11:58 | ESPR_ITS ---
<Statement entered by Jose Robles MD - 07/09/25 17:13> No acute overnight events. Seen and examined at bedside and does not have any new complaints. He is not shivering like he was yesterday and has not spike a fever since 07/08 at 6:30 PM. Will continue with current management with vancomycin, ceftriaxone, ampicillin, and acyclovir and follow-up on cultures and the rest of the CSF lumbar puncture results. CBC shows improving leukocytosis and chem panel is unremarkable. Additionally, ordered fungal culture to be added. ----- Note reviewed and agree with care plan as documented. Please refer to the note below for further details. Plan discussed with attending physician Dr. Clive Robles MD PGY-2 Internal Medicine Documentation for date of: 07/09/25 Subjective Subjective Interval history: No overnight events. White blood cell count trending down 14.2 down from 14.1, no longer febrile, blood chemistry stable, initial CSF analysis negative for bacteria, increased protein. Sent for CSF fungal culture. Patient's mentation is fluctuating, per neurology the patient was awake and talking during the lumbar puncture yesterday. Today the patient is more difficult to arouse, not responding to verbal stimuli. Exam Vital Signs Temp Pulse Resp BP Pulse Ox O2 Del Method O2 Flow Rate 99.5 F 80 13 159/101 H 98 Nasal Cannula 2 07/09/25 08:00 07/09/25 10:34 07/09/25 08:00 07/09/25 10:34 07/09/25 08:00 07/09/25 08:00 07/09/25 08:00 Narrative Exam General: Difficult to arouse. Sleeping in bed. Neurologic: GCS 13. Oriented to person place and time, no gross neurological deficit, and patient able to move all 4 extremities. HEENT: Brudzinski negative, Normocephalic, atraumatic, mucous membranes moist. Pupils reactive to light. Heart: Regular rate and rhythm, normal S1 and S2, no murmurs. Lungs: Clear to auscultation bilaterally with no wheezing or crackles. Abdomen: Obese, soft, nondistended, nontender, positive bowel sounds. No guarding or rebound tenderness. Extremities: No edema. 2+ radial and dorsalis pedis pulses bilaterally. Skin: Warm. Dry. No rash or ecchymoses. Objective Labs 07/10/25 04:44 07/10/25 04:44 Labs: Laboratory Results - last 24 hr 07/08/25 07/08/25 07/09/25 05:17 13:00 04:30 WBC 14.2 H RBC 5.50 Hgb 15.3 Hct 45.4 MCV 83 MCH 27.8 MCHC 33.7 RDW Std Deviation 39.1 Plt Count 149 D Neut % (Auto) 88 H Lymph % (Auto) 10 [place] % (Auto) 2 Eos % (Auto) 0 Baso % (Auto) 0 Neut # (Auto) 12.5 H Lymph # (Auto) 1.4 [place] # (Auto) 0.3 Eos # (Auto) 0.0 Baso # (Auto) 0.0 Immature Gran # (Auto) 0.07 H Absolute Nucleated RBC 0.00 Immature Gran % 1 H Nucleated RBC % 0 Sodium 136 Potassium 3.7 Chloride 98 Carbon Dioxide 23.7 Anion Gap 14 BUN 9 Creatinine 0.9 Estim Creat Clear Calc 112.4 eGFR > 60 BUN/Creatinine Ratio 10 L Glucose 240 H Calculated Osmolality 278 Calcium 9.0 Corrected Calcium 9.0 Phosphorus 2.9 Magnesium 1.8 Total Bilirubin 1.0 AST 26 ALT 12 Alkaline Phosphatase 65 Total Protein 7.2 Albumin 4.0 Globulin 3.2 Albumin/Globulin Ratio 1.3 CSF Appearance Turbid A CSF Color Red A CSF WBC 150 CSF RBC 548001 CSF Cell Count Tube # Tube # 4 CSF Mononuclear WBCs 36.6 CSF Polynuclear WBCs 64.4 CSF Glucose 98 H CSF Total Protein > 250 H CSF H.influenzae B Ag Negative CSF N.meningit ACY/W135 Negative CSF N.mening B/E.coli K1 Negative CSF Strep B Antigen Negative CSF Strep pneumoniae Ag Negative Vancomycin Trough 18.7 H Coccidioides IgG Ab Negative ABG Interpretation ABG results: 07/07/25 19:36 ABG pH 7.42 ABG pCO2 43 ABG pO2 99 ABG HCO3 28 H ABG O2 Saturation 99 H ABG Base Excess 3 Quality Measures Quality Measures VTE prophylaxis and sepsis Current suspected stage: ruled out Possible source: GI tract/intra-abdominal and meningitis Blood cultures ordered: yes Antibiotic ordered: Yes Assessment & Plan Assessment Current Active Medications: Generic Name Dose Route Start Last Admin Trade Name Freq PRN Reason Stop Dose Admin Acetaminophen 1,000 mg 07/08/25 13:23 07/08/25 16:36 Acetaminophen 500 Mg Tablet PO 08/06/25 20:27 1,000 mg Q6H PRN Administration PAIN OR FEVER > 100.4 Amlodipine Besylate 10 mg 07/08/25 09:00 07/09/25 10:34 Amlodipine Besylate 5 Mg Tablet PO 08/07/25 08:59 10 mg DAILY EVANGELINA Administration Dexamethasone Sodium Phosphate 10 mg 07/08/25 12:00 07/09/25 05:07 Dexamethasone Sod Phos Inj 10 Mg/Ml Vial IVP 08/07/25 11:59 10 mg Q6HR EVANGELINA Administration Dextrose 25 ml 07/07/25 20:24 Dextrose 50%-Water Inj 50 Ml Syringe IV 08/06/25 20:23 Q15MIN PRN BG 50-70 responsive npo pt Dextrose 50 ml 07/07/25 20:24 Dextrose 50%-Water Inj 50 Ml Syringe IV 08/06/25 20:23 Q15MIN PRN BG <50 OR BG <70 & pt unresponsive Glucagon 1 mg 07/07/25 20:24 Glucagon Inj 1 Mg Vial IM Q15MIN PRN BG <70, and no IV access Heparin Sodium (Porcine) 5,000 unit 07/07/25 23:30 07/08/25 15:03 Heparin Sod Inj 5000 Unit/Ml Vial SC 07/21/25 23:29 Not Given Q8HR EVANGELINA Ceftriaxone Sodium 2 gm/ 50 mls @ 100 mls/hr 07/07/25 21:00 07/09/25 10:34 Sodium Chloride IV 07/14/25 20:59 100 mls/hr Q12HR EVANGELINA Administration Ampicillin Sodium 2,000 mg/ 100 mls @ 200 mls/hr 07/07/25 17:52 07/09/25 10:35 Sodium Chloride IV 07/14/25 17:51 200 mls/hr Q4HR EVANGELINA Administration Acyclovir Sodium 700 mg/ 114 mls @ 114 mls/hr 07/08/25 14:00 07/09/25 05:06 Sodium Chloride IV 07/14/25 21:59 114 mls/hr Q8HR EVANGELINA Administration Lactated Ringer's 1,000 mls @ 125 mls/hr 07/07/25 23:26 07/09/25 07:40 Lactated Ringers IV 08/06/25 23:25 125 mls/hr .Q8H EVANGELINA Administration Vancomycin/Sodium Chloride 200 mls @ 100 mls/hr 07/09/25 14:00 Vancomycin/Ns 1 Gm Ivpb IV 07/16/25 13:59 Q8HR EVANGELINA Ibuprofen 400 mg 07/08/25 13:22 Ibuprofen Tab 400 Mg Tablet PO 08/07/25 13:21 Q6HR PRN Fever > 100.4 Insulin Human Lispro 0 unit 07/08/25 22:50 07/09/25 07:49 Insulin Lispro (Admelog) 1 Unit/0.01 Ml Unit SC 08/07/25 22:49 3 unit ACHS EVANGELINA Administration Protocol Labetalol HCl 10 mg 07/08/25 17:18 Labetalol Inj 5 Mg/Ml Vial 20 Ml IVP 08/07/25 17:17 X1 PRN SBP >/= 180 with HR>65 Lisinopril 10 mg 07/09/25 09:00 07/09/25 10:33 Lisinopril 2.5 Mg Tablet PO 08/08/25 08:59 10 mg DAILY EVANGELINA Administration Ondansetron HCl 4 mg 07/07/25 20:28 Ondansetron Inj 2 Mg/Ml Inj 2 Ml IVP 08/06/25 20:27 Q6H PRN NAUSEA OR VOMITING Protocol Pantoprazole Sodium 40 mg 07/08/25 09:00 07/09/25 10:35 Pantoprazole Inj 40 Mg Vial IVP 08/07/25 08:59 40 mg QDAY EVANGELINA Administration Pharmacy Consult 1 each 07/08/25 09:00 Vancomycin Pharmacy To Dose 1 Each Each IV 08/07/25 08:59 QDAY PRN PROTOCOL Plan Anshul Jaramillo is a 54-year-old male with past medical history of type 2 diabetes mellitus and hypertension who presents to [facility] ED on 07/07/2025 with weakness and confusion for the last few days. Admitted for acute encephalopathy evaluation and management. #Acute encephalopathy DDx: Infectious, drug-induced, metabolic * Likely infectious source at this time due to patient meeting septic criteria with temperature of 105, tachycardic 109 and WBC 13.7 on arrival, no longer febrile or tachycardic * Suspicion for possible meningitis, however the patient did not complain of the headache, neck stiffness. * Brudzinski sign is negative for the patient continues to have fevers and complains of head and neck pain * CT abdomen pelvis showed minimal perinephric stranding and mild thickening of urinary bladder wall, UA was negative patient has no urinary symptoms. * Will need to cover for bacterial and viral meningitis at this time, hence on rocephin, vancomycin, ampicillin, and acyclovir for meningitis treatment. Less likely drug-induced as UTOX is negative and substance are monitored in detention. * Initial CSF analysis showed a protein of over 250, glucose 98, red appearance, negative for bacteria * HIV serology negative * Cocci serology negative Plan: ? Follow-up CSF for: Culture and Gram stain, enterovirus, angiotensin-converting enzyme, myelin basic protein, VDRL, and West Nile virus ? Added fungal CSF culture 07/09/2025 ? Dexamethasone 10 mg every 6 hours ? Antipyretics: Tylenol and ibuprofen ? Continue Rocephin 2 g IV twice daily ? Continue Vancomycin ? Continue Ampicillin 2 g IV every 4 hours ? Continue Acyclovir IV 10 mg/kg every 8 hours - Blood culture pending, negative after 48 hours - Neurology consulted, considering MRI of the brain #Type 2 diabetes mellitus * On admission glucose 321. * A1c 11.2 * Home medication glipizide 10 mg, metformin 1000 p.o. twice daily, holding for now Plan: - Glucose checks ACHS - Continue insulin sliding scale - Fingerstick glucose 300+ and has been uptrending, will start degludec 10 mg at bedtime #History of hypertension #Hypertensive emergency * Home medication amlodipine 10 mg p.o. daily * Patient was in hypertensive emergency with a BP of 182/104 in the afternoon of 07/08/2025, BP went down to 154/82 with no intervention. Plan: - Continue home amlodipine 10 mg daily ? Labetalol 10 mg IV as needed for SBP over 180 with a heart rate of at least 65 Hospital management: Lines: Peripheral IV Diet: Cardiac diet GI prophylaxis: Pantoprazole DVT prophylaxis: Heparin SC Disposition: Preliminary CSF cultures negative for bacteria. Continuing current treatment. Will follow-up CSF fungal and viral results. Neurology on board. Considering MRI. CODE STATUS: Full code Patient was seen and discussed with my attending physician Dr. Clive BEYER and my senior resident Dr. Travis BEYER PGY-2. Rajeev Florentino DO PGY-1. Attending Provider Attestation/Addendum I Ligia Duffy MD reviewed the note and agree with the resident's assessment & plan with modifications/additions/exceptions as below. I have personally reviewed labs, imaging, home meds/prior records, examined the patient, formulated and discussed management plan with the IM team. A 54-year-old male with history of DM admitted with acute encephalopathy of undetermined etiology. CT head unremarkable, CSF analysis did reveal significantly elevated proteins however multiple CSF studies are still pending. Patient was febrile on presentation and had lactic acidosis which has been resolved. Continue Rocephin, vancomycin, ampicillin and acyclovir empirically. Repeat inflammatory markers including CRP obtain hepatitis, viral and STD panel including HIV. Continue dexamethasone to help prevent cerebral edema, obtain MRI, consulted neurology for further recommendations.
[2025-07-09] MEDS: VANCOMYCIN/NS 1 GM IVPB 200 ML IV ×2 (14:26→21:03)
[2025-07-09] MEDS: HEPARIN SOD INJ 5000 UNIT/ML VIAL SC ×2 (14:26→21:03)
[2025-07-09] MEDS: INSULIN DEGLUDEC 5 UNIT/0.05 ML (PER 5 UNITS) SC ×2 (18:41→20:11)
[2025-07-10] VITALS (9 sets, daily range): BP systolic 144–173; BP diastolic 98–106; PULSE 70–80; RESP 12–20; TEMP 36.1–36.6; O2SAT 93–99; BMI 13.0
--- NOTE | 2025-07-10 | XR_ITS ---
Examination: MRI brain with intravenous contrast TECHNIQUE sagittal axial coronal MR brain images post intravenous administration 20 cc gadolinium Date and time: July 10, 2025 1453 hours INDICATIONS: Altered mental status 3 days, clinical diagnosis meningitis FINDINGS: Ventricles are normal in size and configuration. No mass effect upon the ventricular system No abnormal enhancing cerebellar or cerebral lesions No meningeal abnormal enhancement seen with meningitis No pituitary mass No cerebellar tonsillar herniation IMPRESSION: Negative for acute hemorrhage mass effect or midline shift No abnormal enhancing cerebellar or cerebral lesions
[2025-07-10] MEDS: DEXAMETHASONE SOD PHOS INJ 10 MG/ML VIAL IVP ×5 (00:11→23:24)
[2025-07-10] MEDS: Ampicillin Inj 2,000 MG in SODIUM CHLORIDE 0.9% (POP) 100 ML 200 MG IV ×6 (02:47→22:21)
[2025-07-10 05:27] LABS: Basophils # (Auto) 0.0 Thou/mm3 (0.0-0.2); Basophils % (Auto) 0 % (0-2.5); Eosinophils # (Auto) 0.0 Thou/mm3 (0.0-0.5); Eosinophils % (Auto) 0 % (0-10); Hematocrit 40.0 % (41.0-53.0); Hemoglobin 14.0 g/dL (13.5-16.0); Immature Granulocytes Auto 0.16 Thou/mm3 (0.00-0.00); Lymphocytes # (Auto) 1.2 Thou/mm3 (1.0-4.8); Lymphocytes % (Auto) 7 % (10-50); Mean Corpuscular HGB Conc 35.0 g/dl (31.0-37.0); Mean Corpuscular Hemoglobin 28.3 pg (25.0-35.0); Mean Corpuscular Volume 81 fL (80-100); Monocytes # (Auto) 0.6 Thou/mm3 (0.0-0.8); Monocytes % (Auto) 3 % (0-12); Neutrophils # (Auto) 15.4 Thou/mm3 (1.8-7.7); Neutrophils % (Auto) 89 % (37-80); Nucleated Red Blood Cell # 0.00 Thou/mm3 (0.00-0.00); Nucleated Red Blood Cell % 0 /100 WBC (0); Platelet Count 274 Thou/mm3 (140-440); RDW Standard Deviation 38.0 fL (35.1-43.9); Red Blood Count 4.94 Miln/mm3 (4.50-5.90); White Blood Count 17.3 Thou/mm3 (3.8-10.6)
[2025-07-10] MEDS: ACYCLOVIR INJ 700 MG in SODIUM CHLORIDE 0.9% 100 ML 114 MG IV ×3 (05:27→22:21)
[2025-07-10] MEDS: VANCOMYCIN/NS 1 GM IVPB 200 ML IV ×3 (05:27→22:21)
[2025-07-10] MEDS: HEPARIN SOD INJ 5000 UNIT/ML VIAL SC ×3 (05:38→22:21)
[2025-07-10 05:46] LABS: Alanine Aminotransferase 11 U/L (10-49); Albumin, Serum 3.8 gm/dL (3.5-5.0); Albumin/Globulin Ratio 1.4 (1.2-2.2); Alkaline Phosphatase 63 U/L (46-116); Anion Gap 10 (7-16); Aspartate Amino Transferase 12 U/L (0-34); BUN/Creatinine Ratio 28 Ratio (12-20); Bilirubin,Total 0.7 mg/dL (0.3-1.2); Blood Urea Nitrogen 22 mg/dL (9-23); Calcium 9.0 mg/dL (8.3-10.6); Calcium (Corrected) 9.2 mg/dL (8.5-10.1); Carbon Dioxide 28.9 mMol/L (20.0-31.0); Chloride 101 mMol/L (98-107); Creatinine (Component) 0.8 mg/dL (0.6-1.3); Estimated Creatinine Clearance 131.0 mL/min (>60); Globulin 2.7 gm/dL (2.3-3.5); Glucose 289 mg/dL (74-106); Magnesium 2.3 mg/dL (1.6-2.6); Osmolality,Calculated 293 (275-295); Phosphorous 3.1 mg/dL (2.4-5.1); Potassium 3.2 mMol/L (3.4-5.1); Sodium 140 mMol/L (136-145); Total Protein 6.5 gm/dL (5.7-8.2); eGFR > 60 See Note
[2025-07-10] MEDS: INSULIN LISPRO (AdmeLOG) 1 UNIT/0.01 ML UNIT SC ×4 (07:34→22:20)
[2025-07-10] MEDS: cefTRIAXone 2 GM in SODIUM CHLORIDE 0.9% (Popper) 50 ML IV ×2 (09:11→21:05)
[2025-07-10] MEDS: POTASSIUM CHL 10 mEq IVPB 10 MEQ/100 ML BAG 100 MEQ IV ×4 (10:33→16:24)
[2025-07-10] MEDS: RINGERS LACTATED 1000 ML 1,000 ML 125 ML IV ×2 (10:33→22:19)
[2025-07-10 12:02] LABS: C-Reactive Protein 0.6 mg/dL (0.0-0.9)
--- NOTE | 2025-07-10 13:17 | ESPR_ITS ---
<Statement entered by Michael Segura MD - 07/10/25 18:44> Patient examined and case discussed with the team including attending physician. Note reviewed, I agree with the care plan as documented. Please refer to the note below for further details. - Michael Segura MD, PGY 3 Disclaimer: The document may contain phonetic/typographic errors due to voice recognition software. These errors are purely due to imperfections in the software program. Documentation for date of: 07/10/25 Subjective Subjective Interval history: Patient's white count increased from 14.2 to 17.3. Potassium 3.2, repleted and will follow-up. Initial CSF results negative for organisms or white blood cells, fungal culture pending, viral panel pending. Brain MRI negative for abnormal enhancing cerebellar or cerebral lesions. Patient remains afebrile and his mentation is improving. Exam Vital Signs Temp Pulse Resp BP Pulse Ox O2 Del Method O2 Flow Rate 97.0 F 76 16 164/106 H 96 Room Air 2 07/10/25 12:00 07/10/25 12:00 07/10/25 12:00 07/10/25 12:00 07/10/25 12:00 07/10/25 12:07/09/25 12:00 Narrative Exam General: Resting comfortably in bed. Neurologic: GCS 15. Oriented to person place and time, no gross neurological deficit, and patient able to move all 4 extremities. HEENT: Brudzinski negative, Normocephalic, atraumatic, mucous membranes moist. Pupils reactive to light. Heart: Regular rate and rhythm, normal S1 and S2, no murmurs. Lungs: Clear to auscultation bilaterally with no wheezing or crackles. Abdomen: Obese, soft, nondistended, nontender, positive bowel sounds. No guarding or rebound tenderness. Extremities: No edema. 2+ radial and dorsalis pedis pulses bilaterally. Skin: Warm. Dry. No rash or ecchymoses. Objective Labs 07/10/25 04:44 07/10/25 04:44 Labs: Laboratory Results - last 24 hr 07/10/25 07/10/25 04:44 04:49 WBC 17.3 H RBC 4.94 Hgb 14.0 Hct 40.0 L MCV 81 MCH 28.3 MCHC 35.0 RDW Std Deviation 38.0 Plt Count 274 D Neut % (Auto) 89 H Lymph % (Auto) 7 L [place] % (Auto) 3 Eos % (Auto) 0 Baso % (Auto) 0 Neut # (Auto) 15.4 H Lymph # (Auto) 1.2 [place] # (Auto) 0.6 Eos # (Auto) 0.0 Baso # (Auto) 0.0 Immature Gran # (Auto) 0.16 H Absolute Nucleated RBC 0.00 Immature Gran % 1 H Nucleated RBC % 0 Sodium 140 Potassium 3.2 L D Chloride 101 Carbon Dioxide 28.9 Anion Gap 10 BUN 22 Creatinine 0.8 Estim Creat Clear Calc 131.0 eGFR > 60 BUN/Creatinine Ratio 28 H Glucose 289 H Calculated Osmolality 293 Calcium 9.0 Corrected Calcium 9.2 Phosphorus 3.1 Magnesium 2.3 Total Bilirubin 0.7 AST 12 ALT 11 Alkaline Phosphatase 63 C-Reactive Prot, Quant 0.6 Total Protein 6.5 Albumin 3.8 Globulin 2.7 Albumin/Globulin Ratio 1.4 ABG Interpretation ABG results: 07/07/25 19:36 ABG pH 7.42 ABG pCO2 43 ABG pO2 99 ABG HCO3 28 H ABG O2 Saturation 99 H ABG Base Excess 3 Quality Measures Quality Measures VTE prophylaxis and sepsis Current suspected stage: ruled out Possible source: GI tract/intra-abdominal and meningitis Blood cultures ordered: yes Antibiotic ordered: Yes Assessment & Plan Assessment Current Active Medications: Generic Name Dose Route Start Last Admin Trade Name Freq PRN Reason Stop Dose Admin Acetaminophen 1,000 mg 07/08/25 13:23 07/08/25 16:36 Acetaminophen 500 Mg Tablet PO 08/06/25 20:27 1,000 mg Q6H PRN Administration PAIN OR FEVER > 100.4 Amlodipine Besylate 10 mg 07/08/25 09:00 07/10/25 08:12 Amlodipine Besylate 5 Mg Tablet PO 08/07/25 08:59 10 mg DAILY EVANGELINA Administration Dexamethasone Sodium Phosphate 10 mg 07/08/25 12:00 07/10/25 11:45 Dexamethasone Sod Phos Inj 10 Mg/Ml Vial IVP 07/12/25 11:59 10 mg Q6HR EVANGELINA Administration Dextrose 25 ml 07/07/25 20:24 Dextrose 50%-Water Inj 50 Ml Syringe IV 08/06/25 20:23 Q15MIN PRN BG 50-70 responsive npo pt Dextrose 50 ml 07/07/25 20:24 Dextrose 50%-Water Inj 50 Ml Syringe IV 08/06/25 20:23 Q15MIN PRN BG <50 OR BG <70 & pt unresponsive Glucagon 1 mg 07/07/25 20:24 Glucagon Inj 1 Mg Vial IM Q15MIN PRN BG <70, and no IV access Heparin Sodium (Porcine) 5,000 unit 07/07/25 23:30 07/10/25 05:38 Heparin Sod Inj 5000 Unit/Ml Vial SC 07/21/25 23:29 5,000 unit Q8HR EVANGELINA Administration Ceftriaxone Sodium 2 gm/ 50 mls @ 100 mls/hr 07/07/25 21:00 07/10/25 09:11 Sodium Chloride IV 07/14/25 20:59 100 mls/hr Q12HR EVANGELINA Administration Ampicillin Sodium 2,000 mg/ 100 mls @ 200 mls/hr 07/07/25 17:52 07/10/25 09:46 Sodium Chloride IV 07/14/25 17:51 200 mls/hr Q4HR EVANGELINA Administration Acyclovir Sodium 700 mg/ 114 mls @ 114 mls/hr 07/08/25 14:00 07/10/25 05:27 Sodium Chloride IV 07/14/25 21:59 114 mls/hr Q8HR EVANGELINA Administration Lactated Ringer's 1,000 mls @ 125 mls/hr 07/07/25 23:26 07/10/25 10:33 Lactated Ringers IV 08/06/25 23:25 125 mls/hr .Q8H EVANGELINA Administration Vancomycin/Sodium Chloride 200 mls @ 100 mls/hr 07/09/25 14:00 07/10/25 05:27 Vancomycin/Ns 1 Gm Ivpb IV 07/16/25 13:59 100 mls/hr Q8HR EVANGELINA Administration Ibuprofen 400 mg 07/08/25 13:22 Ibuprofen Tab 400 Mg Tablet PO 08/07/25 13:21 Q6HR PRN Fever > 100.4 Insulin Degludec 10 unit 07/10/25 21:00 Insulin Degludec 5 Unit/0.05 Ml (Per 5 Units) SC 08/09/25 20:59 HS EVANGELINA Insulin Human Lispro 0 unit 07/08/25 22:50 07/10/25 12:09 Insulin Lispro (Admelog) 1 Unit/0.01 Ml Unit SC 08/07/25 22:49 4 unit ACHS EVANGELINA Administration Protocol Labetalol HCl 10 mg 07/09/25 18:10 Labetalol Inj 5 Mg/Ml Vial 20 Ml IVP 08/07/25 17:17 Q2H PRN SBP above 180 Lisinopril 10 mg 07/09/25 09:00 07/10/25 08:13 Lisinopril 2.5 Mg Tablet PO 08/08/25 08:59 10 mg DAILY EVANGELINA Administration Ondansetron HCl 4 mg 07/07/25 20:28 Ondansetron Inj 2 Mg/Ml Inj 2 Ml IVP 08/06/25 20:27 Q6H PRN NAUSEA OR VOMITING Protocol Pantoprazole Sodium 40 mg 07/08/25 09:00 07/10/25 08:09 Pantoprazole Inj 40 Mg Vial IVP 08/07/25 08:59 40 mg QDAY EVANGELINA Administration Pharmacy Consult 1 each 07/08/25 09:00 Vancomycin Pharmacy To Dose 1 Each Each IV 08/07/25 08:59 QDAY PRN PROTOCOL Plan Anshul Jaramillo is a 54-year-old male with past medical history of type 2 diabetes mellitus and hypertension who presents to [facility] ED on 07/07/2025 with weakness and confusion for the last few days. Admitted for acute encephalopathy evaluation and management. #Acute encephalopathy #Meningitis rule out DDx: Infectious, drug-induced, metabolic * Likely infectious source at this time due to patient meeting septic criteria with temperature of 105, tachycardic 109 and WBC 13.7 on arrival, no longer febrile or tachycardic * Suspicion for possible meningitis, however the patient did not complain of the headache, neck stiffness. * Brudzinski sign is negative for the patient continues to have fevers and complains of head and neck pain * CT abdomen pelvis showed minimal perinephric stranding and mild thickening of urinary bladder wall, UA was negative patient has no urinary symptoms. * Will need to cover for bacterial and viral meningitis at this time, hence on rocephin, vancomycin, ampicillin, and acyclovir for meningitis treatment. Less likely drug-induced as UTOX is negative and substance are monitored in nursing home. * Initial CSF analysis showed a protein of over 250, glucose 98, red appearance, negative for bacteria * HIV serology negative * Cocci serology negative * Brain MRI negative for abnormal enhancing cerebellar or cerebral lesions * CRP negative * Pro-Raman negative Plan: ? Follow-up CSF for: Culture and Gram stain, enterovirus, angiotensin-converting enzyme, myelin basic protein, VDRL, and West Nile virus ? Added fungal CSF culture 07/09/2025, pending ? Dexamethasone 10 mg every 6 hours ? Antipyretics: Tylenol and ibuprofen as needed ? Continue Rocephin 2 g IV twice daily ? Continue Vancomycin ? Continue Ampicillin 2 g IV every 4 hours ? Continue Acyclovir IV 10 mg/kg every 8 hours - Blood culture pending, negative after 48 hours #Type 2 diabetes mellitus * On admission glucose 321. * A1c 11.2 * Home medication glipizide 10 mg, metformin 1000 p.o. twice daily, holding for now Plan: - Glucose checks ACHS - Fingerstick glucose still uncontrolled in the mid 200s - Patient received 22 units of lispro and 10 units degludec over the past 24 hours 07/09/2025 - 07/10/2025, will adjust to 20 units degludec nightly with 4 units lispro 3 times daily with meals #History of hypertension #Hypertensive urgency (Resolved) * Home medication amlodipine 10 mg p.o. daily * Patient was in hypertensive emergency with a BP of 182/104 in the afternoon of 07/08/2025, BP went down to 154/82 with no intervention, no evidence of endorgan damage because creatinine was normal, AST ALT were normal, and troponins were normal * Still hypertensive on 07/10/2025, BP 151/106 Plan: ? Continue home amlodipine 10 mg daily ? Labetalol 10 mg IV as needed for SBP over 180 with a heart rate of at least 65 #Hypokalemia * Potassium 3.2 Plan: * 40 mill EQ potassium ordered * Will trend potassium with morning labs Hospital management: Lines: Peripheral IV Diet: Cardiac diet GI prophylaxis: Pantoprazole 40 mg daily DVT prophylaxis: Heparin SC 5000 units subcu every 8 hours Disposition: Preliminary CSF cultures negative for bacteria. Continuing current treatment. Brain MRI negative. Pending CSF viral and fungal cultures. Patient mentation is improving. CODE STATUS: Full code Patient was seen and discussed with my attending physician Dr. Clive BEYER and my senior resident Dr. Colton BEYER PGY-3. Rajeev Florentino DO PGY-1. Attending Provider Attestation/Addendum I Ligia Duffy MD reviewed the note and agree with the resident's assessment & plan with modifications/additions/exceptions as below. I have personally reviewed labs, imaging, home meds/prior records, examined the patient, formulated and discussed management plan with the IM team. A 54-year-old male with history of DM admitted with acute encephalopathy of undetermined etiology. CT head unremarkable, CSF analysis did reveal significantly elevated proteins however multiple CSF studies are still pending. Patient was febrile on presentation and had lactic acidosis which has been resolved. Patient's mentation has been significantly improved currently oh x 3 however intermittently confused, continue Rocephin, vancomycin, ampicillin and acyclovir empirically for potential encephalitis of unknown etiology. Repeat inflammatory markers including CRP obtain hepatitis, viral and STD panel including HIV. Continue dexamethasone to help prevent cerebral edema, obtain MRI brain with contrast, consulted neurology for further recommendations.
--- NOTE | 2025-07-10 13:41 | CHAP ---
Patient was visited by the Spiritual Care Volunteer who was sleeping. They prayed a silent prayer with them. (Volunteer was in the hospital 11:05-1:41)
[2025-07-10 14:06] LABS: Vancomycin,Trough 16.5 mcg/mL (5.0-10.0)
[2025-07-10] MEDS: INSULIN LISPRO (AdmeLOG) 1 UNIT/0.01 ML UNIT 4 UNIT SC ×2 (15:19→18:06)
[2025-07-10] MEDS: INSULIN DEGLUDEC 5 UNIT/0.05 ML (PER 5 UNITS) 10 UNIT SC ×2 (15:19→22:19)
--- NOTE | 2025-07-10 23:05 | PD.NEUROPROG ---
Documentation for date of: 07/10/25 Exam - Neurology Vital Signs Temp Pulse Resp BP Pulse Ox O2 Del Method O2 Flow Rate 97.9 F 74 18 151/106 H 99 Room Air 2 07/10/25 20:00 07/10/25 22:53 07/10/25 22:53 07/10/25 20:00 07/10/25 22:53 07/10/25 20:00 07/09/25 12:00 Objective Labs 07/10/25 04:44 07/10/25 04:44 Labs: Laboratory Results - last 24 hr 07/10/25 07/10/25 07/10/25 04:44 04:49 13:36 WBC 17.3 H RBC 4.94 Hgb 14.0 Hct 40.0 L MCV 81 MCH 28.3 MCHC 35.0 RDW Std Deviation 38.0 Plt Count 274 D Neut % (Auto) 89 H Lymph % (Auto) 7 L [place] % (Auto) 3 Eos % (Auto) 0 Baso % (Auto) 0 Neut # (Auto) 15.4 H Lymph # (Auto) 1.2 [place] # (Auto) 0.6 Eos # (Auto) 0.0 Baso # (Auto) 0.0 Immature Gran # (Auto) 0.16 H Absolute Nucleated RBC 0.00 Immature Gran % 1 H Nucleated RBC % 0 Sodium 140 Potassium 3.2 L D Chloride 101 Carbon Dioxide 28.9 Anion Gap 10 BUN 22 Creatinine 0.8 Estim Creat Clear Calc 131.0 eGFR > 60 BUN/Creatinine Ratio 28 H Glucose 289 H Calculated Osmolality 293 Calcium 9.0 Corrected Calcium 9.2 Phosphorus 3.1 Magnesium 2.3 Total Bilirubin 0.7 AST 12 ALT 11 Alkaline Phosphatase 63 C-Reactive Prot, Quant 0.6 Total Protein 6.5 Albumin 3.8 Globulin 2.7 Albumin/Globulin Ratio 1.4 Vancomycin Trough 16.5 H ABG Interpretation ABG results: 07/07/25 19:36 ABG pH 7.42 ABG pCO2 43 ABG pO2 99 ABG HCO3 28 H ABG O2 Saturation 99 H ABG Base Excess 3
[2025-07-11] VITALS (7 sets, daily range): BP systolic 153–176; BP diastolic 92–114; PULSE 68–83; RESP 12–18; TEMP 35.9–36.9; O2SAT 93–99; BMI 44.8
[2025-07-11] MEDS: Ampicillin Inj 2,000 MG in SODIUM CHLORIDE 0.9% (POP) 100 ML 200 MG IV ×6 (01:19→22:14)
[2025-07-11 05:29] LABS: Basophils # (Auto) 0.0 Thou/mm3 (0.0-0.2); Basophils % (Auto) 0 % (0-2.5); Eosinophils # (Auto) 0.0 Thou/mm3 (0.0-0.5); Eosinophils % (Auto) 0 % (0-10); Hematocrit 43.3 % (41.0-53.0); Hemoglobin 14.8 g/dL (13.5-16.0); Immature Granulocytes Auto 0.14 Thou/mm3 (0.00-0.00); Lymphocytes # (Auto) 0.9 Thou/mm3 (1.0-4.8); Lymphocytes % (Auto) 5 % (10-50); Mean Corpuscular HGB Conc 34.2 g/dl (31.0-37.0); Mean Corpuscular Hemoglobin 27.8 pg (25.0-35.0); Mean Corpuscular Volume 81 fL (80-100); Monocytes # (Auto) 0.5 Thou/mm3 (0.0-0.8); Monocytes % (Auto) 3 % (0-12); Neutrophils # (Auto) 14.1 Thou/mm3 (1.8-7.7); Neutrophils % (Auto) 90 % (37-80); Nucleated Red Blood Cell # 0.00 Thou/mm3 (0.00-0.00); Nucleated Red Blood Cell % 0 /100 WBC (0); Platelet Count 289 Thou/mm3 (140-440); RDW Standard Deviation 38.4 fL (35.1-43.9); Red Blood Count 5.32 Miln/mm3 (4.50-5.90); White Blood Count 15.6 Thou/mm3 (3.8-10.6)
[2025-07-11] MEDS: ACYCLOVIR INJ 700 MG in SODIUM CHLORIDE 0.9% 100 ML 114 MG IV ×3 (05:42→22:13)
[2025-07-11] MEDS: DEXAMETHASONE SOD PHOS INJ 10 MG/ML VIAL IVP ×4 (05:43→23:51)
[2025-07-11] MEDS: VANCOMYCIN/NS 1 GM IVPB 200 ML IV ×3 (05:44→22:16)
[2025-07-11] MEDS: HEPARIN SOD INJ 5000 UNIT/ML VIAL SC ×3 (05:44→22:15)
[2025-07-11 06:15] LABS: Alanine Aminotransferase 11 U/L (10-49); Albumin, Serum 3.6 gm/dL (3.5-5.0); Albumin/Globulin Ratio 1.4 (1.2-2.2); Anion Gap 10 (7-16); Aspartate Amino Transferase 16 U/L (0-34); BUN/Creatinine Ratio 19 Ratio (12-20); Bilirubin,Total 0.6 mg/dL (0.3-1.2); Blood Urea Nitrogen 13 mg/dL (9-23); Calcium 8.7 mg/dL (8.3-10.6); Calcium (Corrected) 9.0 mg/dL (8.5-10.1); Carbon Dioxide 26.6 mMol/L (20.0-31.0); Chloride 100 mMol/L (98-107); Creatinine (Component) 0.7 mg/dL (0.6-1.3); Estimated Creatinine Clearance 148.2 mL/min (>60); Globulin 2.5 gm/dL (2.3-3.5); Glucose 208 mg/dL (74-106); Magnesium 2.3 mg/dL (1.6-2.6); Osmolality,Calculated 279 (275-295); Phosphorous 2.7 mg/dL (2.4-5.1); Potassium 3.4 mMol/L (3.4-5.1); Procalcitonin 0.07 ng/ml (0.0-0.49); Sodium 137 mMol/L (136-145); Total Protein 6.1 gm/dL (5.7-8.2); eGFR > 60 See Note
[2025-07-11 06:19] LABS: Alkaline Phosphatase 67 U/L (46-116)
[2025-07-11] MEDS: INSULIN LISPRO (AdmeLOG) 1 UNIT/0.01 ML UNIT 4 UNIT SC ×3 (08:05→16:32)
[2025-07-11] MEDS: INSULIN LISPRO (AdmeLOG) 1 UNIT/0.01 ML UNIT SC ×4 (08:06→20:22)
[2025-07-11] MEDS: cefTRIAXone 2 GM in SODIUM CHLORIDE 0.9% (Popper) 50 ML IV ×2 (08:27→20:20)
[2025-07-11] MEDS: RINGERS LACTATED 1000 ML 1,000 ML 125 ML IV ×2 (08:27→18:07)
--- NOTE | 2025-07-11 14:37 | ESPR_ITS ---
<Statement entered by Jose Robles MD - 07/11/25 16:34> No acute overnight events. Seen and examined at bedside and patient appears to be more comfortable today compared to prior. He denies any numbness, tingling, weakness, headaches, change in vision. He has remained afebrile within the last 72 hours, BP 153/97. CBC showed improving leukocytosis after increasing yesterday, stable hemoglobin. CHEM panel shows glucose of 208 and will adjust insulin regimen. Will continue current regimen and MRI without any abnormalities. Continues to pend LP/CSF studies at this time but unlikely to return during hospitalization. ----- Note reviewed and agree with care plan as documented. Please refer to the note below for further details. Plan discussed with attending physician Dr. Clive Robles MD PGY-2 Internal Medicine Documentation for date of: 07/11/25 Subjective Subjective Interval history: White count trended down from 17 to 15, blood chemistry stable. CSF has no organisms or white blood cells, fungal culture pending, viral panel pending.? MRI of the brain with contrast negative for any enhanced lesions. Patient's mentation has returned to baseline and has been more consistent. Vitals significant for hypertension stage II. Exam Vital Signs Temp Pulse Resp BP Pulse Ox O2 Del Method O2 Flow Rate 98.1 F 78 15 153/97 H 95 Room Air 2 07/11/25 12:00 07/11/25 12:00 07/11/25 12:00 07/11/25 12:00 07/11/25 12:00 07/11/25 12:00 07/09/25 12:00 Narrative Exam General: Resting comfortably in bed. Neurologic: GCS 15. Oriented to person place and time, no gross neurological deficit, and patient able to move all 4 extremities. HEENT: Brudzinski negative, Normocephalic, atraumatic, mucous membranes moist. Pupils reactive to light. Heart: Regular rate and rhythm, normal S1 and S2, no murmurs. Lungs: Clear to auscultation bilaterally with no wheezing or crackles. Abdomen: Obese, soft, nondistended, nontender, positive bowel sounds. No guarding or rebound tenderness. Extremities: No edema. 2+ radial and dorsalis pedis pulses bilaterally. Skin: Warm. Dry. No rash or ecchymoses. Objective Labs 07/12/25 05:06 07/12/25 05:06 Labs: Laboratory Results - last 24 hr 07/11/25 04:44 WBC 15.6 H RBC 5.32 Hgb 14.8 Hct 43.3 MCV 81 MCH 27.8 MCHC 34.2 RDW Std Deviation 38.4 Plt Count 289 Neut % (Auto) 90 H Lymph % (Auto) 5 L [place] % (Auto) 3 Eos % (Auto) 0 Baso % (Auto) 0 Neut # (Auto) 14.1 H Lymph # (Auto) 0.9 L [place] # (Auto) 0.5 Eos # (Auto) 0.0 Baso # (Auto) 0.0 Immature Gran # (Auto) 0.14 H Absolute Nucleated RBC 0.00 Immature Gran % 1 H Nucleated RBC % 0 Sodium 137 Potassium 3.4 Chloride 100 Carbon Dioxide 26.6 Anion Gap 10 BUN 13 Creatinine 0.7 Estim Creat Clear Calc 148.2 eGFR > 60 BUN/Creatinine Ratio 19 Glucose 208 H D Calculated Osmolality 279 Calcium 8.7 Corrected Calcium 9.0 Phosphorus 2.7 Magnesium 2.3 Total Bilirubin 0.6 AST 16 ALT 11 Alkaline Phosphatase 67 Total Protein 6.1 Albumin 3.6 Globulin 2.5 Albumin/Globulin Ratio 1.4 Procalcitonin 0.07 ABG Interpretation ABG results: 07/07/25 19:36 ABG pH 7.42 ABG pCO2 43 ABG pO2 99 ABG HCO3 28 H ABG O2 Saturation 99 H ABG Base Excess 3 Quality Measures Quality Measures VTE prophylaxis and sepsis Current suspected stage: ruled out Possible source: GI tract/intra-abdominal and meningitis Blood cultures ordered: yes Antibiotic ordered: Yes Assessment & Plan Assessment Current Active Medications: Generic Name Dose Route Start Last Admin Trade Name Freq PRN Reason Stop Dose Admin Acetaminophen 1,000 mg 07/08/25 13:23 07/08/25 16:36 Acetaminophen 500 Mg Tablet PO 08/06/25 20:27 1,000 mg Q6H PRN Administration PAIN OR FEVER > 100.4 Amlodipine Besylate 10 mg 07/08/25 09:00 07/11/25 08:28 Amlodipine Besylate 5 Mg Tablet PO 08/07/25 08:59 10 mg DAILY EVANGELINA Administration Dexamethasone Sodium Phosphate 10 mg 07/08/25 12:00 07/11/25 11:51 Dexamethasone Sod Phos Inj 10 Mg/Ml Vial IVP 07/12/25 11:59 10 mg Q6HR EVANGELINA Administration Dextrose 25 ml 07/07/25 20:24 Dextrose 50%-Water Inj 50 Ml Syringe IV 08/06/25 20:23 Q15MIN PRN BG 50-70 responsive npo pt Dextrose 50 ml 07/07/25 20:24 Dextrose 50%-Water Inj 50 Ml Syringe IV 08/06/25 20:23 Q15MIN PRN BG <50 OR BG <70 & pt unresponsive Glucagon 1 mg 07/07/25 20:24 Glucagon Inj 1 Mg Vial IM Q15MIN PRN BG <70, and no IV access Heparin Sodium (Porcine) 5,000 unit 07/07/25 23:30 07/11/25 13:06 Heparin Sod Inj 5000 Unit/Ml Vial SC 07/21/25 23:29 5,000 unit Q8HR EVANGELINA Administration Ceftriaxone Sodium 2 gm/ 50 mls @ 100 mls/hr 07/07/25 21:00 07/11/25 08:27 Sodium Chloride IV 07/14/25 20:59 100 mls/hr Q12HR EVANGELINA Administration Ampicillin Sodium 2,000 mg/ 100 mls @ 200 mls/hr 07/07/25 17:52 07/11/25 13:05 Sodium Chloride IV 07/14/25 17:51 200 mls/hr Q4HR EVANGELINA Administration Acyclovir Sodium 700 mg/ 114 mls @ 114 mls/hr 07/08/25 14:00 07/11/25 13:05 Sodium Chloride IV 07/14/25 21:59 114 mls/hr Q8HR EVANGELINA Administration Lactated Ringer's 1,000 mls @ 125 mls/hr 07/07/25 23:26 07/11/25 14:30 Lactated Ringers IV 08/06/25 23:25 Not Given .Q8H EVANGELINA Vancomycin/Sodium Chloride 200 mls @ 100 mls/hr 07/11/25 06:33 07/11/25 14:29 Vancomycin/Ns 1 Gm Ivpb IV 07/16/25 13:59 100 mls/hr Q8HR EVANGELINA Administration Protocol Ibuprofen 400 mg 07/08/25 13:22 Ibuprofen Tab 400 Mg Tablet PO 08/07/25 13:21 Q6HR PRN Fever > 100.4 Insulin Degludec 20 unit 07/11/25 21:00 Insulin Degludec 5 Unit/0.05 Ml (Per 5 Units) SC 08/10/25 20:59 HS EVANGELINA Insulin Human Lispro 4 unit 07/10/25 14:00 07/11/25 11:50 Insulin Lispro (Admelog) 1 Unit/0.01 Ml Unit SC 08/09/25 13:59 4 unit TIDWM EVANGELINA Administration Insulin Human Lispro 0 unit 07/11/25 08:00 07/11/25 11:50 Insulin Lispro (Admelog) 1 Unit/0.01 Ml Unit SC 08/10/25 07:59 3 unit ACHS EVANGELINA Administration Protocol Labetalol HCl 10 mg 07/09/25 18:10 Labetalol Inj 5 Mg/Ml Vial 20 Ml IVP 08/07/25 17:17 Q2H PRN SBP above 180 Lisinopril 10 mg 07/09/25 09:00 07/11/25 08:28 Lisinopril 2.5 Mg Tablet PO 08/08/25 08:59 10 mg DAILY EVANGELINA Administration Ondansetron HCl 4 mg 07/07/25 20:28 Ondansetron Inj 2 Mg/Ml Inj 2 Ml IVP 08/06/25 20:27 Q6H PRN NAUSEA OR VOMITING Protocol Pantoprazole Sodium 40 mg 07/08/25 09:00 07/11/25 08:29 Pantoprazole Inj 40 Mg Vial IVP 08/07/25 08:59 40 mg QDAY EVANGELINA Administration Pharmacy Consult 1 each 07/08/25 09:00 Vancomycin Pharmacy To Dose 1 Each Each IV 08/07/25 08:59 QDAY PRN PROTOCOL Plan Anshul Jaramillo is a 54-year-old male with past medical history of type 2 diabetes mellitus and hypertension who presents to [facility] ED on 07/07/2025 with weakness and confusion for the last few days. Admitted for acute encephalopathy evaluation and management. #Acute encephalopathy #Meningitis rule out DDx: Infectious, drug-induced, metabolic * Likely infectious source at this time due to patient meeting septic criteria with temperature of 105, tachycardic 109 and WBC 13.7 on arrival, no longer febrile or tachycardic * Suspicion for possible meningitis, however the patient did not complain of the headache, neck stiffness. * Brudzinski sign is negative for the patient continues to have fevers and complains of head and neck pain * CT abdomen pelvis showed minimal perinephric stranding and mild thickening of urinary bladder wall, UA was negative patient has no urinary symptoms. * Will need to cover for bacterial and viral meningitis at this time, hence on rocephin, vancomycin, ampicillin, and acyclovir for meningitis treatment. Less likely drug-induced as UTOX is negative and substance are monitored in [facility]. * Initial CSF analysis showed a protein of over 250, glucose 98, red appearance, negative for bacteria * HIV serology negative * Cocci serology negative * Brain MRI negative for abnormal enhancing cerebellar or cerebral lesions * CRP negative * Pro-Raman negative Plan: ? Follow-up CSF for: Culture and Gram stain, enterovirus, angiotensin-converting enzyme, myelin basic protein, VDRL, and West Nile virus ? Added fungal CSF culture 07/09/2025, pending ? Dexamethasone 10 mg every 6 hours ? Antipyretics: Tylenol and ibuprofen as needed ? Continue Rocephin 2 g IV twice daily ? Continue Vancomycin ? Continue Ampicillin 2 g IV every 4 hours ? Continue Acyclovir IV 10 mg/kg every 8 hours - Blood culture pending, negative after 48 hours #Type 2 diabetes mellitus * On admission glucose 321. * A1c 11.2 * Home medication glipizide 10 mg, metformin 1000 p.o. twice daily, holding for now Plan: - Glucose checks ACHS - Fingerstick glucose still uncontrolled in the mid 200s - Patient received 22 units of lispro and 10 units degludec over the 24 hours 07/09/2025 - 07/10/2025, adjusted to 20 units degludec nightly with 4 units lispro 3 times daily with meals - Blood sugars still over 200. Patient received 59 units of insulin total over the past 24 hours. Considering that the patient is on steroids, will increase degludec from 20 to 30 units nightly and lispro from 4 to 6 TID with meals. #History of hypertension #Hypertensive urgency (Resolved) * Home medication amlodipine 10 mg p.o. daily * Patient was in hypertensive emergency with a BP of 182/104 in the afternoon of 07/08/2025, BP went down to 154/82 with no intervention, no evidence of endorgan damage because creatinine was normal, AST ALT were normal, and troponins were normal Plan: ? Continue home amlodipine 10 mg daily ? Labetalol 10 mg IV as needed for SBP over 180 with a heart rate of at least 65 #Hypokalemia (resolved) Hospital management: Lines: Peripheral IV Diet: Cardiac diet GI prophylaxis: Pantoprazole 40 mg daily DVT prophylaxis: Heparin SC 5000 units subcu every 8 hours Disposition: Preliminary CSF cultures negative for bacteria. Continuing current treatment. The patient's mentation is becoming more consistent. CODE STATUS: Full code Patient was seen and discussed with my attending physician Dr. Clive BEYER and my senior resident Dr. Travis BEYER PGY-2. Rajeev Florentino DO PGY-1. Attending Provider Attestation/Addendum I Ligia Duffy MD reviewed the note and agree with the resident's assessment & plan with modifications/additions/exceptions as below. I have personally reviewed labs, imaging, home meds/prior records, examined the patient, formulated and discussed management plan with the IM team. A 54-year-old male with history of DM admitted with acute encephalopathy of undetermined etiology. CT head unremarkable, CSF analysis did reveal significantly elevated proteins however multiple CSF studies are still pending. Patient was febrile on presentation and had lactic acidosis which has been resolved. Patient's mentation has been significantly improved currently AO x 3 however intermittently confused, continue Rocephin, vancomycin, ampicillin and acyclovir empirically for potential encephalitis of unknown etiology. Repeat inflammatory markers including CRP obtain hepatitis, viral and STD panel including HIV. Continue dexamethasone to help prevent cerebral edema, MRI brain obtained without any significant anatomical lesion however will reach out to radiology regarding input regarding cerebral edema concerning for encephalitis, consulted neurology for further recommendations.
[2025-07-11] MEDS: INSULIN LISPRO (AdmeLOG) 1 UNIT/0.01 ML UNIT 2 UNIT SC (18:06)
[2025-07-11] MEDS: INSULIN DEGLUDEC 5 UNIT/0.05 ML (PER 5 UNITS) 30 UNIT SC (20:21)
[2025-07-11 22:05] LABS: HSV-1 DNA, CSF NOT DETECTED copies/mL; HSV-1 DNA, CSF Source CEREBROSPINAL FLUID
[2025-07-12] VITALS (10 sets, daily range): BP systolic 139–169; BP diastolic 84–107; PULSE 59–87; RESP 13–18; TEMP 35.9–36.8; O2SAT 94–98; BMI 45.4
[2025-07-12] MEDS: Ampicillin Inj 2,000 MG in SODIUM CHLORIDE 0.9% (POP) 100 ML 200 MG IV ×2 (01:17→05:51)
[2025-07-12] MEDS: RINGERS LACTATED 1000 ML 1,000 ML 125 ML IV ×2 (04:13→13:31)
[2025-07-12 05:28] LABS: Basophils # (Auto) 0.0 Thou/mm3 (0.0-0.2); Basophils % (Auto) 0 % (0-2.5); Eosinophils # (Auto) 0.0 Thou/mm3 (0.0-0.5); Eosinophils % (Auto) 0 % (0-10); Hematocrit 44.1 % (41.0-53.0); Hemoglobin 15.0 g/dL (13.5-16.0); Immature Granulocytes Auto 0.19 Thou/mm3 (0.00-0.00); Lymphocytes # (Auto) 1.0 Thou/mm3 (1.0-4.8); Lymphocytes % (Auto) 7 % (10-50); Mean Corpuscular HGB Conc 34.0 g/dl (31.0-37.0); Mean Corpuscular Hemoglobin 27.5 pg (25.0-35.0); Mean Corpuscular Volume 81 fL (80-100); Monocytes # (Auto) 0.5 Thou/mm3 (0.0-0.8); Monocytes % (Auto) 4 % (0-12); Neutrophils # (Auto) 12.4 Thou/mm3 (1.8-7.7); Neutrophils % (Auto) 88 % (37-80); Nucleated Red Blood Cell # 0.00 Thou/mm3 (0.00-0.00); Nucleated Red Blood Cell % 0 /100 WBC (0); Platelet Count 313 Thou/mm3 (140-440); RDW Standard Deviation 38.2 fL (35.1-43.9); Red Blood Count 5.45 Miln/mm3 (4.50-5.90); White Blood Count 14.1 Thou/mm3 (3.8-10.6)
[2025-07-12] MEDS: ACYCLOVIR INJ 700 MG in SODIUM CHLORIDE 0.9% 100 ML 114 MG IV ×3 (05:51→21:30)
[2025-07-12] MEDS: HEPARIN SOD INJ 5000 UNIT/ML VIAL SC ×3 (05:52→21:30)
[2025-07-12] MEDS: VANCOMYCIN/NS 1 GM IVPB 200 ML IV (05:52)
[2025-07-12] MEDS: DEXAMETHASONE SOD PHOS INJ 10 MG/ML VIAL IVP (05:52)
[2025-07-12 05:53] LABS: Alanine Aminotransferase 14 U/L (10-49); Albumin, Serum 3.6 gm/dL (3.5-5.0); Albumin/Globulin Ratio 1.3 (1.2-2.2); Alkaline Phosphatase 65 U/L (46-116); Anion Gap 9 (7-16); Aspartate Amino Transferase 17 U/L (0-34); BUN/Creatinine Ratio 19 Ratio (12-20); Bilirubin,Total 0.7 mg/dL (0.3-1.2); Blood Urea Nitrogen 13 mg/dL (9-23); Calcium 8.7 mg/dL (8.3-10.6); Calcium (Corrected) 9.0 mg/dL (8.5-10.1); Carbon Dioxide 28.6 mMol/L (20.0-31.0); Chloride 99 mMol/L (98-107); Creatinine (Component) 0.7 mg/dL (0.6-1.3); Estimated Creatinine Clearance 148.2 mL/min (>60); Globulin 2.8 gm/dL (2.3-3.5); Glucose 221 mg/dL (74-106); Osmolality,Calculated 280 (275-295); Potassium 3.6 mMol/L (3.4-5.1); Sodium 137 mMol/L (136-145); Total Protein 6.4 gm/dL (5.7-8.2); Vancomycin,Trough 15.8 mcg/mL (5.0-10.0); eGFR > 60 See Note
[2025-07-12] MEDS: INSULIN LISPRO (AdmeLOG) 1 UNIT/0.01 ML UNIT SC ×4 (08:19→20:26)
[2025-07-12] MEDS: INSULIN LISPRO (AdmeLOG) 1 UNIT/0.01 ML UNIT 6 UNIT SC (08:20)
[2025-07-12] MEDS: cefTRIAXone 2 GM in SODIUM CHLORIDE 0.9% (Popper) 50 ML IV (08:22)
--- NOTE | 2025-07-12 09:33 | ESPR_ITS ---
<Statement entered by Jose Robles MD - 07/12/25 15:43> No acute overnight events. Seen and examined at bedside and patient resting comfortably in bed. Discontinuing antibiotics, degludec, mealtime insulin, and dexamethasone. Continuing acyclovir and SSI. Will adjust insulin as needed. Otherwise, vital signs stable, leukocytosis improving, and CHEM panel unremarkable. Mentation remains at his baseline, A & O x 3. Multiple CSF studies pending at this time but cultures remain negative. Neurology following, appreciate recommendations. ----- Note reviewed and agree with care plan as documented. Please refer to the note below for further details. Plan discussed with attending physician Dr. Clive Robles MD PGY-2 Internal Medicine Documentation for date of: 07/12/25 Subjective Subjective Interval history: No overnight events. Patient seen and examined at bedside. Vitals significant for stage II hypertension. Remained are stable. White count 14.1 down from 15.6, blood chemistry stable. Discontinuing antibiotics, degludec, 3 times daily with meals insulin, and dexamethasone. Will continue acyclovir. Exam Vital Signs Temp Pulse Resp BP Pulse Ox O2 Del Method O2 Flow Rate 97.0 F 79 18 141/84 H 97 Room Air 2 07/12/25 07:55 07/12/25 08:22 07/12/25 07:55 07/12/25 08:22 07/12/25 07:55 07/12/25 07:55 07/09/25 12:00 Narrative Exam General: Resting comfortably in bed. Neurologic: GCS 15. Oriented to person place and time, no gross neurological deficit, and patient able to move all 4 extremities. HEENT: Brudzinski negative, Normocephalic, atraumatic, mucous membranes moist. Pupils reactive to light. Heart: Regular rate and rhythm, normal S1 and S2, no murmurs. Lungs: Clear to auscultation bilaterally with no wheezing or crackles. Abdomen: Obese, soft, nondistended, nontender, positive bowel sounds. No guarding or rebound tenderness. Extremities: No edema. 2+ radial and dorsalis pedis pulses bilaterally. Skin: Warm. Dry. No rash or ecchymoses. Objective Labs 07/12/25 05:06 07/12/25 05:06 Labs: Laboratory Results - last 24 hr 07/12/25 05:06 WBC 14.1 H RBC 5.45 Hgb 15.0 Hct 44.1 MCV 81 MCH 27.5 MCHC 34.0 RDW Std Deviation 38.2 Plt Count 313 Neut % (Auto) 88 H Lymph % (Auto) 7 L [place] % (Auto) 4 Eos % (Auto) 0 Baso % (Auto) 0 Neut # (Auto) 12.4 H Lymph # (Auto) 1.0 [place] # (Auto) 0.5 Eos # (Auto) 0.0 Baso # (Auto) 0.0 Immature Gran # (Auto) 0.19 H Absolute Nucleated RBC 0.00 Immature Gran % 1 H Nucleated RBC % 0 Sodium 137 Potassium 3.6 Chloride 99 Carbon Dioxide 28.6 Anion Gap 9 BUN 13 Creatinine 0.7 Estim Creat Clear Calc 148.2 eGFR > 60 BUN/Creatinine Ratio 19 Glucose 221 H Calculated Osmolality 280 Calcium 8.7 Corrected Calcium 9.0 Total Bilirubin 0.7 AST 17 ALT 14 Alkaline Phosphatase 65 Total Protein 6.4 Albumin 3.6 Globulin 2.8 Albumin/Globulin Ratio 1.3 Vancomycin Trough 15.8 H ABG Interpretation ABG results: 07/07/25 19:36 ABG pH 7.42 ABG pCO2 43 ABG pO2 99 ABG HCO3 28 H ABG O2 Saturation 99 H ABG Base Excess 3 Quality Measures Quality Measures VTE prophylaxis and sepsis Current suspected stage: ruled out Possible source: GI tract/intra-abdominal and meningitis Blood cultures ordered: yes Antibiotic ordered: No Assessment & Plan Assessment Current Active Medications: Generic Name Dose Route Start Last Admin Trade Name Freq PRN Reason Stop Dose Admin Acetaminophen 1,000 mg 07/08/25 13:23 07/08/25 16:36 Acetaminophen 500 Mg Tablet PO 08/06/25 20:27 1,000 mg Q6H PRN Administration PAIN OR FEVER > 100.4 Amlodipine Besylate 10 mg 07/08/25 09:00 07/12/25 08:22 Amlodipine Besylate 5 Mg Tablet PO 08/07/25 08:59 10 mg DAILY EVANGELINA Administration Dexamethasone Sodium Phosphate 10 mg 07/08/25 12:00 07/12/25 05:52 Dexamethasone Sod Phos Inj 10 Mg/Ml Vial IVP 07/12/25 11:59 10 mg Q6HR EVANGELINA Administration Dextrose 25 ml 07/07/25 20:24 Dextrose 50%-Water Inj 50 Ml Syringe IV 08/06/25 20:23 Q15MIN PRN BG 50-70 responsive npo pt Dextrose 50 ml 07/07/25 20:24 Dextrose 50%-Water Inj 50 Ml Syringe IV 08/06/25 20:23 Q15MIN PRN BG <50 OR BG <70 & pt unresponsive Glucagon 1 mg 07/07/25 20:24 Glucagon Inj 1 Mg Vial IM Q15MIN PRN BG <70, and no IV access Heparin Sodium (Porcine) 5,000 unit 07/07/25 23:30 07/12/25 05:52 Heparin Sod Inj 5000 Unit/Ml Vial SC 07/21/25 23:29 5,000 unit Q8HR EVANGELINA Administration Ceftriaxone Sodium 2 gm/ 50 mls @ 100 mls/hr 07/07/25 21:00 07/12/25 08:22 Sodium Chloride IV 07/14/25 20:59 100 mls/hr Q12HR EVANGELINA Administration Ampicillin Sodium 2,000 mg/ 100 mls @ 200 mls/hr 07/07/25 17:52 07/12/25 05:51 Sodium Chloride IV 07/14/25 17:51 200 mls/hr Q4HR EVANGELINA Administration Acyclovir Sodium 700 mg/ 114 mls @ 114 mls/hr 07/08/25 14:00 07/12/25 05:51 Sodium Chloride IV 07/14/25 21:59 114 mls/hr Q8HR EVANGELINA Administration Lactated Ringer's 1,000 mls @ 125 mls/hr 07/07/25 23:26 07/12/25 04:13 Lactated Ringers IV 08/06/25 23:25 125 mls/hr .Q8H EVANGELINA Administration Vancomycin/Sodium Chloride 200 mls @ 120 mls/hr 07/12/25 14:00 Vancomycin/Ns 1 Gm Ivpb IV 07/19/25 13:59 Q8HR EVANGELINA Protocol Ibuprofen 400 mg 07/08/25 13:22 Ibuprofen Tab 400 Mg Tablet PO 08/07/25 13:21 Q6HR PRN Fever > 100.4 Insulin Degludec 30 unit 07/11/25 21:00 07/11/25 20:21 Insulin Degludec 5 Unit/0.05 Ml (Per 5 Units) SC 08/10/25 20:59 30 unit HS EVANGELINA Administration Insulin Human Lispro 0 unit 07/11/25 08:00 07/12/25 08:19 Insulin Lispro (Admelog) 1 Unit/0.01 Ml Unit SC 08/10/25 07:59 4 unit ACHS EVANGELINA Administration Protocol Insulin Human Lispro 6 unit 07/11/25 17:30 07/12/25 08:20 Insulin Lispro (Admelog) 1 Unit/0.01 Ml Unit SC 08/10/25 17:29 6 unit TIDWM EVANGELINA Administration Labetalol HCl 10 mg 07/09/25 18:10 Labetalol Inj 5 Mg/Ml Vial 20 Ml IVP 08/07/25 17:17 Q2H PRN SBP above 180 Lisinopril 10 mg 07/09/25 09:00 07/12/25 08:21 Lisinopril 2.5 Mg Tablet PO 08/08/25 08:59 10 mg DAILY EVANGELINA Administration Ondansetron HCl 4 mg 07/07/25 20:28 Ondansetron Inj 2 Mg/Ml Inj 2 Ml IVP 08/06/25 20:27 Q6H PRN NAUSEA OR VOMITING Protocol Pantoprazole Sodium 40 mg 07/08/25 09:00 07/12/25 08:20 Pantoprazole Inj 40 Mg Vial IVP 08/07/25 08:59 40 mg QDAY EVANGELINA Administration Pharmacy Consult 1 each 07/08/25 09:00 Vancomycin Pharmacy To Dose 1 Each Each IV 08/07/25 08:59 QDAY PRN PROTOCOL Plan Summary: Anshul Jaramillo is a 54-year-old male with past medical history of type 2 diabetes mellitus and hypertension who presents to [facility] ED on 07/07/2025 with weakness and confusion for the last few days. Admitted for acute encephalopathy evaluation and management. #Acute encephalopathy #Encephalitis rule out #Leukocytosis DDx: Infectious, drug-induced, metabolic * Initial CSF analysis showed a protein of over 250, glucose 98, red appearance, negative for bacteria * HIV serology negative * Cocci serology negative * Brain MRI negative for abnormal enhancing cerebellar or cerebral lesions * CRP negative * Pro-Raman negative * Patient's mentation is consistent and no longer fluctuating. He has returned to baseline. Plan: ? Follow-up CSF for: Culture and Gram stain, enterovirus, angiotensin-converting enzyme, myelin basic protein, VDRL, and West Nile virus ? Added fungal CSF culture 07/09/2025, pending ? Antipyretics: Tylenol and ibuprofen as needed ? Continue Acyclovir IV 10 mg/kg every 8 hours ? DC dexamethasone 10 mg every 6 hours ? DC Rocephin 2 g IV twice daily ? DC Vancomycin ? DC Ampicillin 2 g IV every 4 hours #Type 2 diabetes mellitus * On admission glucose 321. * A1c 11.2 * Home medication glipizide 10 mg, metformin 1000 p.o. twice daily, holding for now * Consider elevated glucose during hospital stay secondary to dexamethasone Plan: - Glucose checks ACHS - DC degludec and lispro 3 times daily with meals - Insulin sliding scale #History of hypertension #Hypertensive urgency (Resolved) Plan: ? Continue home amlodipine 10 mg daily ? Lisinopril 10 mg p.o. daily ? Labetalol 10 mg IV as needed for SBP over 180 with a heart rate of at least 65 #Hypokalemia (resolved) Hospital management: Lines: Peripheral IV Diet: Cardiac diet GI prophylaxis: Pantoprazole 40 mg daily DVT prophylaxis: Heparin SC 5000 units subcu every 8 hours Disposition: Discontinuing antibiotic treatment in light of negative CSF bacterial cultures and improving mentation. Discontinued steroids. Will continue antiviral treatment. CODE STATUS: Full code Patient was seen and discussed with my attending physician Dr. Clive BEYER and my senior resident Dr. Travis BEYER PGY-2. Rajeev Florentino DO PGY-1. Attending Provider Attestation/Addendum I Ligia Duffy MD reviewed the note and agree with the resident's assessment & plan with modifications/additions/exceptions as below. I have personally reviewed labs, imaging, home meds/prior records, examined the patient, formulated and discussed management plan with the IM team. A 54-year-old male with history of DM admitted with acute encephalopathy of undetermined etiology. CT head unremarkable, CSF analysis did reveal significantly elevated proteins however multiple CSF studies are still pending. Afebrile, sepsis resolved, mentation has been significantly improved currently AO x 3. Will discontinue antibiotics and dexamethasone, continue acyclovir empirically for potential viral encephalitis of unknown etiology. Repeat inflammatory markers including CRP obtain hepatitis, viral and STD panel including HIV. MRI brain obtained without any significant anatomical lesion however will reach out to radiology regarding input regarding cerebral edema concerning for encephalitis, neurology on board, appreciate recommendations.
--- NOTE | 2025-07-12 10:05 | CHAP ---
Patient was visited by the Spiritual Care Volunteer who prayed for them. (Volunteer was in the hospital 09:12-10:05)
[2025-07-13] VITALS (9 sets, daily range): BP systolic 149–167; BP diastolic 92–111; PULSE 59–87; RESP 15–22; TEMP 36.1–36.3; O2SAT 94–97; BMI 46.1
--- NOTE | 2025-07-13 00:03 | PD.NEUROPROG ---
Documentation for date of: 07/11/25 Subjective Subjective Interval history: Patient was seen in telemetry today. No complaints overnight. Anxious to be discharged Exam - Neurology Vital Signs Temp Pulse Resp BP Pulse Ox O2 Del Method O2 Flow Rate 97.0 F 70 18 151/101 H 98 Room Air 2 07/12/25 20:00 07/12/25 23:04 07/12/25 23:04 07/12/25 20:00 07/12/25 23:04 07/12/25 20:00 07/09/25 12:00 Narrative Exam GENERAL APPEARANCE: Well-developed, obese built male in no acute distress. HEENT: Normocephalic, atraumatic, extraocular movements intact. Pupils: Equal reacting to light and accommodation NECK: Supple, no JVD or bruits. CARDIOVASULAR: Heart: S1, S2 heard, regular without S3-S4 or murmur no rubs or gallops. LUNGS/CHEST: Clear to auscultation bilaterally. No rails, rhonchi, or wheezing. Normal inspection. ABDOMEN: Soft, nontender, with normal bowel sounds. No pulsatile masses. No rebound, rigidity, or guarding. Normal inspection and palpation. EXTREMITIES: Normal inspection and palpation. No edema, clubbing or cyanosis. SKIN: Warm and dry without rashes. Normal inspection. MUSCULOSKELETAL: No cervical, thoracic, lumbar or midline bony tenderness. Normal inspection. NEURO: Alert, awake and oriented x3. Cranial nerves: II through XII grossly intact. Speech and language: Normal with no dysarthria or dysphasia. Motor system: Tone and bulk: Normal: Strength: 5 out of 5 in all 4 extremities; No pronator drift noted. Deep tendon reflexes: 2+ bilaterally symmetrical. Plantar reflex: Downgoing bilaterally. Sensory system: Intact to all modalities of sensation bilaterally. Coordination: Intact to [id number] and [id number] test bilaterally. No ataxia, no dysmetria, or dysdiadochokinesia noted. No intention tremors noted. Gait: Not tested. No signs of meningeal irritation noted. PSYCHIATRIC: Normal mood and affect. Objective Labs 07/13/25 04:35 07/13/25 04:35 Labs: Laboratory Results - last 24 hr 07/12/25 05:06 WBC 14.1 H RBC 5.45 Hgb 15.0 Hct 44.1 MCV 81 MCH 27.5 MCHC 34.0 RDW Std Deviation 38.2 Plt Count 313 Neut % (Auto) 88 H Lymph % (Auto) 7 L [place] % (Auto) 4 Eos % (Auto) 0 Baso % (Auto) 0 Neut # (Auto) 12.4 H Lymph # (Auto) 1.0 [place] # (Auto) 0.5 Eos # (Auto) 0.0 Baso # (Auto) 0.0 Immature Gran # (Auto) 0.19 H Absolute Nucleated RBC 0.00 Immature Gran % 1 H Nucleated RBC % 0 Sodium 137 Potassium 3.6 Chloride 99 Carbon Dioxide 28.6 Anion Gap 9 BUN 13 Creatinine 0.7 Estim Creat Clear Calc 148.2 eGFR > 60 BUN/Creatinine Ratio 19 Glucose 221 H Calculated Osmolality 280 Calcium 8.7 Corrected Calcium 9.0 Total Bilirubin 0.7 AST 17 ALT 14 Alkaline Phosphatase 65 Total Protein 6.4 Albumin 3.6 Globulin 2.8 Albumin/Globulin Ratio 1.3 Vancomycin Trough 15.8 H ABG Interpretation ABG results: 07/07/25 19:36 ABG pH 7.42 ABG pCO2 43 ABG pO2 99 ABG HCO3 28 H ABG O2 Saturation 99 H ABG Base Excess 3 Assessment & Plan Additional Assessment & Plan Additional Plan: Anshul is a 54 y/o male with PMHx of morbid obesity comes in for an evaluation of sepsis and acute encephalopathy. #Acute encephalopathy: resolved DDx: Infectious, drug-induced, metabolic Likely infectious source at this time due to patient meeting septic criteria Temperature of 105, likely related to possible meningitis, however the patient did not complain of the headache Covered for bacterial and viral meningitis at this time Lumbar puncture successfully performed, however will need to correct fluid analysis and RBCs as patient had a traumatic tap and all 4 sample appear to be bloody Cocci IgM and IgG negative CSF Gram stain shows no white blood cells or organisms seen, however all 4 tubes of sample were blood-tinged and had RBCs White blood cell corrected for RBCs shows level of 54 WBC, corrected protein: 46, not significant Initial and final CSF cultures negative including Neisseria, haemophilus Blood cultures no growth. Plan: Okay to discontinue antibiotics including acyclovir as we are not considering HSV meningitis or encephalitis any longer With the improvement in mental status back to baseline, being afebrile and after correcting CSF analysis with traumatic tap #History of hypertension #History of type 2 diabetes mellitus Above handled by primary hospitalist team
[2025-07-13] MEDS: HEPARIN SOD INJ 5000 UNIT/ML VIAL SC ×2 (05:20→13:22)
[2025-07-13] MEDS: ACYCLOVIR INJ 700 MG in SODIUM CHLORIDE 0.9% 100 ML 114 MG IV ×2 (05:20→13:22)
[2025-07-13 06:08] LABS: Basophils # (Auto) 0.1 Thou/mm3 (0.0-0.2); Basophils % (Auto) 0 % (0-2.5); Eosinophils # (Auto) 0.0 Thou/mm3 (0.0-0.5); Eosinophils % (Auto) 0 % (0-10); Hematocrit 41.9 % (41.0-53.0); Hemoglobin 14.3 g/dL (13.5-16.0); Immature Granulocytes Auto 0.25 Thou/mm3 (0.00-0.00); Lymphocytes # (Auto) 1.7 Thou/mm3 (1.0-4.8); Lymphocytes % (Auto) 12 % (10-50); Mean Corpuscular HGB Conc 34.1 g/dl (31.0-37.0); Mean Corpuscular Hemoglobin 27.8 pg (25.0-35.0); Mean Corpuscular Volume 81 fL (80-100); Monocytes # (Auto) 1.3 Thou/mm3 (0.0-0.8); Monocytes % (Auto) 9 % (0-12); Neutrophils # (Auto) 10.6 Thou/mm3 (1.8-7.7); Neutrophils % (Auto) 76 % (37-80); Nucleated Red Blood Cell # 0.00 Thou/mm3 (0.00-0.00); Nucleated Red Blood Cell % 0 /100 WBC (0); Platelet Count 294 Thou/mm3 (140-440); RDW Standard Deviation 38.0 fL (35.1-43.9); Red Blood Count 5.15 Miln/mm3 (4.50-5.90); White Blood Count 13.8 Thou/mm3 (3.8-10.6)
[2025-07-13 06:29] LABS: Alanine Aminotransferase 48 U/L (10-49); Albumin, Serum 3.4 gm/dL (3.5-5.0); Albumin/Globulin Ratio 1.4 (1.2-2.2); Alkaline Phosphatase 63 U/L (46-116); Anion Gap 8 (7-16); Aspartate Amino Transferase 51 U/L (0-34); BUN/Creatinine Ratio 14 Ratio (12-20); Bilirubin,Total 0.7 mg/dL (0.3-1.2); Blood Urea Nitrogen 10 mg/dL (9-23); Calcium 8.5 mg/dL (8.3-10.6); Calcium (Corrected) 9.0 mg/dL (8.5-10.1); Carbon Dioxide 30.9 mMol/L (20.0-31.0); Chloride 98 mMol/L (98-107); Creatinine (Component) 0.7 mg/dL (0.6-1.3); Estimated Creatinine Clearance 150.6 mL/min (>60); Globulin 2.4 gm/dL (2.3-3.5); Glucose 207 mg/dL (74-106); Osmolality,Calculated 278 (275-295); Potassium 3.5 mMol/L (3.4-5.1); Sodium 137 mMol/L (136-145); Total Protein 5.8 gm/dL (5.7-8.2); Vancomycin,Trough 6.6 mcg/mL (5.0-10.0); eGFR > 60 See Note
[2025-07-13] MEDS: INSULIN LISPRO (AdmeLOG) 1 UNIT/0.01 ML UNIT SC ×2 (07:38→11:12)
--- NOTE | 2025-07-13 09:00 | PC.NURSE ---
Per Dr. Chadd amaro to give new order losartan.
[2025-07-13] MEDS: LOSARTAN POTASSIUM 25 MG TABLET 50 MG PO ×2 (09:17→15:01)
[2025-07-13] MEDS: INSULIN DEGLUDEC 5 UNIT/0.05 ML (PER 5 UNITS) SC (09:18)
[2025-07-13 09:19] LABS: HSV-2 DNA, CSF NOT DETECTED copies/mL; VDRL, CSF Qual* NON-REACTIVE
[2025-07-13] MEDS: INSULIN LISPRO (AdmeLOG) 1 UNIT/0.01 ML UNIT 10 UNIT SC (13:21)
--- NOTE | 2025-07-13 13:21 | PD.ADDPROG ---
Addendum Progress Note Addendum Date of report being addended: 07/13/25 Narrative: I Ligia Duffy MD reviewed the note and agree with the resident's assessment & plan with modifications/additions/exceptions as below. I have personally reviewed labs, imaging, home meds/prior records, examined the patient, formulated and discussed management plan with the IM team. A 54-year-old male with history of DM admitted with acute encephalopathy of undetermined etiology. CT head unremarkable, MRI brain did not reveal any significant abnormality. CSF analysis did reveal significantly elevated proteins however multiple CSF studies are still pending. Afebrile, sepsis resolved, mentation has been significantly improved currently AO x 3. Discontinue antibiotics, steroids and antiviral as per neurology recommendations. Etiology likely encephalitis of undetermined etiology, pending CSF studies. Will have PT evaluation, plan for discharge if able to ambulate properly. Will follow-up with neurology outpatient in a week.
--- NOTE | 2025-07-13 14:19 | PD.RESPRO ---
Documentation for date of: 07/13/25 Subjective Subjective Interval history: Patient was seen and examined at the bedside. No acute overnight events reported. Patient reported to have improvement in his dizziness and is alert and oriented x 3. Vitals reveal slightly elevated blood pressure. Labs were significant for hyperglycemia. White count has been improving. Kidney functions and electrolyte panel unremarkable. Fungal culture pending. Patient denies any headache or fever. Patient reported prior to admission he had a fever spike of 105. Exam Vital Signs Temp Pulse Resp BP Pulse Ox O2 Del Method O2 Flow Rate 97.0 F 70 18 163/92 H 96 Room Air 2 07/13/25 08:00 07/13/25 12:00 07/13/25 08:00 07/13/25 09:17 07/13/25 08:00 07/13/25 08:00 07/09/25 12:00 Narrative Exam GENERAL APPEARANCE: AxOx4, obese male in no acute distress. HEENT: NC, AT. MMM. EOMI, clear conjunctiva, oropharynx clear. NECK: Supple without lymphadenopathy. No stiffness or restricted ROM. HEART: Regular rate and regular rhythm, normal S1/S2, no m/r/g LUNGS: CTAB, moving air well. No crackles or wheezes are heard. ABDOMEN: Soft, nontender, nondistended with good bowel sounds heard. BACK: No CVAT, no obvious deformity. EXTREMITIES: Without cyanosis, clubbing or edema. NEUROLOGICAL: Grossly nonfocal. Alert and oriented, moving all 4 extremities. CN not formally tested but appear grossly intact. Observed to ambulate with normal gait. Skin: Warm and dry without any rash. Psych: Appropriate mood and affect Objective Labs 07/13/25 04:35 07/13/25 04:35 Labs: Laboratory Results - last 24 hr 07/08/25 07/13/25 13:00 04:35 WBC 13.8 H RBC 5.15 Hgb 14.3 Hct 41.9 MCV 81 MCH 27.8 MCHC 34.1 RDW Std Deviation 38.0 Plt Count 294 Neut % (Auto) 76 Lymph % (Auto) 12 [place] % (Auto) 9 Eos % (Auto) 0 Baso % (Auto) 0 Neut # (Auto) 10.6 H Lymph # (Auto) 1.7 [place] # (Auto) 1.3 H Eos # (Auto) 0.0 Baso # (Auto) 0.1 Immature Gran # (Auto) 0.25 H Absolute Nucleated RBC 0.00 Immature Gran % 2 H Nucleated RBC % 0 Sodium 137 Potassium 3.5 Chloride 98 Carbon Dioxide 30.9 Anion Gap 8 BUN 10 Creatinine 0.7 Estim Creat Clear Calc 150.6 eGFR > 60 BUN/Creatinine Ratio 14 Glucose 207 H Calculated Osmolality 278 Calcium 8.5 Corrected Calcium 9.0 Total Bilirubin 0.7 AST 51 H ALT 48 Alkaline Phosphatase 63 Total Protein 5.8 Albumin 3.4 L Globulin 2.4 Albumin/Globulin Ratio 1.4 CSF Source CEREBROSPINAL FLUID CSF VDRL NON-REACTIVE CSF Herpes I DNA (PCR) NOT DETECTED CSF Herpes II DNA (PCR) NOT DETECTED Vancomycin Trough 6.6 ABG Interpretation ABG results: 07/07/25 19:36 ABG pH 7.42 ABG pCO2 43 ABG pO2 99 ABG HCO3 28 H ABG O2 Saturation 99 H ABG Base Excess 3 Quality Measures Quality Measures VTE prophylaxis and sepsis Current suspected stage: sepsis Possible source: GI tract/intra-abdominal and meningitis Blood cultures ordered: yes Antibiotic ordered: Yes Assessment & Plan Assessment Current Active Medications: Generic Name Dose Route Start Last Admin Trade Name Freq PRN Reason Stop Dose Admin Acetaminophen 1,000 mg 07/08/25 13:23 07/08/25 16:36 Acetaminophen 500 Mg Tablet PO 08/06/25 20:27 1,000 mg Q6H PRN Administration PAIN OR FEVER > 100.4 Amlodipine Besylate 10 mg 07/14/25 21:00 Amlodipine Besylate 5 Mg Tablet PO 08/13/25 20:59 HS EVANGELINA Dextrose 50 ml 07/07/25 20:24 Dextrose 50%-Water Inj 50 Ml Syringe IV 08/06/25 20:23 Q15MIN PRN BG <50 OR BG <70 & pt unresponsive Glucagon 1 mg 07/07/25 20:24 Glucagon Inj 1 Mg Vial IM Q15MIN PRN BG <70, and no IV access Heparin Sodium (Porcine) 5,000 unit 07/07/25 23:30 07/13/25 13:22 Heparin Sod Inj 5000 Unit/Ml Vial SC 07/21/25 23:29 5,000 unit Q8HR EVANGELINA Administration Acyclovir Sodium 700 mg/ 114 mls @ 114 mls/hr 07/08/25 14:00 07/13/25 13:22 Sodium Chloride IV 07/14/25 21:59 114 mls/hr Q8HR EVANGELINA Administration Ibuprofen 400 mg 07/08/25 13:22 Ibuprofen Tab 400 Mg Tablet PO 08/07/25 13:21 Q6HR PRN Fever > 100.4 Insulin Human Lispro 0 unit 07/11/25 08:00 07/13/25 11:12 Insulin Lispro (Admelog) 1 Unit/0.01 Ml Unit SC 08/10/25 07:59 4 unit ACHS EVANGELINA Administration Protocol Labetalol HCl 10 mg 07/09/25 18:10 Labetalol Inj 5 Mg/Ml Vial 20 Ml IVP 08/07/25 17:17 Q2H PRN SBP above 180 Losartan Potassium 50 mg 07/13/25 09:00 07/13/25 09:17 Losartan Potassium 25 Mg Tablet PO 08/12/25 08:59 50 mg QDAY EVANGELINA Administration Ondansetron HCl 4 mg 07/07/25 20:28 Ondansetron Inj 2 Mg/Ml Inj 2 Ml IVP 08/06/25 20:27 Q6H PRN NAUSEA OR VOMITING Protocol Pantoprazole Sodium 40 mg 07/08/25 09:00 07/13/25 08:05 Pantoprazole Inj 40 Mg Vial IVP 08/07/25 08:59 40 mg QDAY EVANGELINA Administration Plan Anshul is a 54 y/o male with PMHx of morbid obesity comes in for an evaluation of sepsis and acute encephalopathy. #Acute encephalopathy: resolved DDx: Infectious, drug-induced, metabolic Likely infectious source at this time due to patient meeting septic criteria Temperature of 105, likely related to possible meningitis, however the patient did not complain of the headache Covered for bacterial and viral meningitis at this time Lumbar puncture successfully performed, however will need to correct fluid analysis and RBCs as patient had a traumatic tap and all 4 sample appear to be bloody Cocci IgM and IgG negative CSF Gram stain shows no white blood cells or organisms seen, however all 4 tubes of sample were blood-tinged and had RBCs White blood cell corrected for RBCs shows level of 54 WBC, corrected protein: 46, not significant Initial and final CSF cultures negative including Neisseria, haemophilus cocci is negative at this time Blood cultures no growth. Patient has shown improvement in his mental status back to baseline and has been afebrile. CSF analysis only showed traumatic tap rest of the findings have been negative. West Nile pending. Plan: Recommended to discontinue antibiotics including acyclovir as we are not considering HSV meningitis or encephalitis any longer #History of hypertension #History of type 2 diabetes mellitus Rest of the management as per primary care team. Plan of care discussed with neurologist, Dr Yunior Mazariegos MD, PGY 3 Attending Provider Attestation/Addendum I have seen and examined the patient at the bedside and I agreed with the resident's findings, assessment and plan of care. Patient's presenting symptoms are most likely related to viral meningitis not encephalitis. His CSF findings or not significant considering traumatic tap using correction formula for protein and WBCs. CSF culture was negative, patient remained afebrile and is stable at his baseline mentation. He is stable from neurology standpoint for discharge home and he needs sleep study as an outpatient to confirm the diagnosis of sleep apnea to take care of the daytime hyper somnolence. Will see him back in 2 weeks
--- NOTE | 2025-07-13 15:08 | ESDS_ITS ---
<Statement entered by Jose Robles MD - 07/13/25 15:13> Note reviewed and agree with care plan as documented. Please refer to the note below for further details. Plan discussed with attending physician Dr. Clive Robles MD PGY-2 Internal Medicine Planned Discharge Date 07/13/25 DS: Providers Provider Date of admission: 07/07/25 20:28 Primary care physician: Kalpesh Garcia Admitting Provider: Marie Petersen MD Attending Provider on Admission: Ligia Duffy MD Consults: 07/07/25 17:06 Consult to Neurology / Tele-Neurology Stat Comment: Consulting Provider: Herbert oMjica 07/07/25 20:29 Referral Physical Therapy Routine Comment: Physician Instructions: 07/07/25 21:48 Referral Infection Control Routine Comment: Reason for Infection Control Referral: Multiple ABX (>2) Attending Provider on DC: Jose Robles MD Discharging Provider: Jose Robles MD DS: Diagnosis Discharge Diagnosis (1) Fever: Status: Acute (2) AMS (altered mental status): Status: Acute Problem List Completed Was Problem List Reviewed/Reconciled?: Yes Hospital Course Hospital Course Hospital course: Hospital Course: 54-year-old male PMH of type 2 diabetes hypertension came to the ED with weakness and confusion for 3 days. GCS was 15 on arrival but went down to 10 in the ED.? Was found to have a temp of 105.2, was tachypneic, and had a pulse of 109. The patient was admitted for management of his acute encephalopathy. The patient had an LP 07/08/2025 that was negative for Neisseria meningitidis, strep B and strep pneumo.? MRI of the brain with contrast was negative for any enhancing lesions. He was treated with acyclovir, ampicillin, ceftriaxone, vancomycin, and dexamethasone after arrival. During the patient's hospital stay, his mentation improved to baseline and his fevers resolved. He was eventually able to ambulate the halls independently. The patient never had any spinal tenderness, nuchal rigidity, or Brudzinski sign. His blood sugar was managed inpatient with insulin sliding scale in addition to degludec and lispro. His blood pressure was managed inpatient with amlodipine, the patient will be discharged on losartan and amlodipine and lisinopril was discontinued. The patient is not being discharged on any treatment for his acute encephalopathy. He is to follow-up with neurology and his PCP outpatient within 2 weeks of discharge. Problem List: #Acute encephalopathy #Encephalitis rule out #Leukocytosis #Type 2 diabetes mellitus #History of hypertension #Hypertensive urgency (Resolved) #Hypokalemia (resolved) Discharge Instructions: - Follow up with PCP within 1 week of discharge - Follow up with Neurology outpatient within 2 weeks of discharge - For BP, you have been started on Losartan 100mg daily (morning) and Amlodipine 10mg daily (evening). STOP Lisinopril at this time. - For Diabetes, you have been started on Janumet 1 tablet twice a day (morning + evening). STOP Metformin and Glipizide. - Advisable to start Jardiance or Faxiga outpatient for optimization of blood sugar control, renal protection and morbidity benefit, HbA1c 11% - Return to ED if symptoms worsen The patient was seen and discussed with my attending physician Dr. Duffy and my senior resident Dr. Travis BEYER PGY-2. Rajeev Florentino DO PGY-1 Time Spent with Patient Time attestation: Total time spent providing and/or coordinating discharge services: More than 50% Time spent: Greater than 30 minutes Exam Vital Signs Temp Pulse Resp BP Pulse Ox O2 Del Method O2 Flow Rate 97.0 F 80 18 155/96 H 96 Room Air 2 07/13/25 08:00 07/13/25 15:01 07/13/25 08:00 07/13/25 15:01 07/13/25 08:00 07/13/25 08:00 07/09/25 12:00 Narrative Exam General: Resting comfortably in bed. Neurologic: GCS 15. Oriented to person place and time, no gross neurological deficit, and patient able to move all 4 extremities. HEENT: Brudzinski negative, Normocephalic, atraumatic, mucous membranes moist. Pupils reactive to light. Heart: Regular rate and rhythm, normal S1 and S2, no murmurs. Lungs: Clear to auscultation bilaterally with no wheezing or crackles. Abdomen: Obese, soft, nondistended, nontender, positive bowel sounds. No guarding or rebound tenderness. Extremities: No edema. 2+ radial and dorsalis pedis pulses bilaterally. Skin: Warm. Dry. No rash or ecchymoses. Discharge Plan Plan Patient Disposition: HOME (Self Care) Patient condition on transfer: Stable Care Plan Goals: - Follow up with PCP within 1 week of discharge - Follow up with Neurology outpatient within 2 weeks of discharge - For BP, you have been started on Losartan 100mg daily (morning) and Amlodipine 10mg daily (evening). STOP Lisinopril at this time. - For Diabetes, you have been started on Janumet 1 tablet twice a day (morning + evening). STOP Metformin and Glipizide. - Advisable to start Jardiance or Faxiga outpatient for optimization of blood sugar control, renal protection and morbidity benefit, HbA1c 11% - Return to ED if symptoms worsen Prescriptions/Referrals Prescriptions/Med Rec: New losartan 100 mg tablet 100 mg PO QDAY 30 Days Qty: 30 0RF Janumet 50-1,000 mg tablet 1 tab PO BID 30 Days Qty: 60 1RF Changed amlodipine 10 mg tablet 10 mg PO HS 30 Days Qty: 30 0RF Patient Comments: TAKE 1 TABLET BY MOUTH EVERY DAY Discontinued Amlodipine Bes/Benazepril * (LOTREL 02/28 *) 1 CAP capsule 1 cap PO DAILY PRN (Reason: HYPERTENSION) Qty: 0 ibuprofen 600 MG tablet 600 mg PO Q6HR Qty: 30 0RF glipizide 10 mg tablet extended release 24hr 10 mg PO DAILY Patient Comments: TAKE 1 TABLET BY MOUTH EVERY DAY metformin 1,000 mg tablet 1,000 mg PO BID Patient Comments: TAKE 1 TABLET BY MOUTH TWICE A DAY lisinopril 10 mg tablet 10 mg PO DAILY Patient Comments: TAKE 1 TABLET BY MOUTH EVERY DAY Referrals: Kalpesh Garcia [Primary Care Provider] Patient/Caregiver Discharge Instructions Education Materials: Diabetes and Heart Disease, Medicines for Heart Disease, Blood Pressure Check Steps Print Language: Romansh Stand Alone Forms: [facility] Award Info., Patient Portal Info Letter Discharge Order Discharge Orders: Discharge (Routine); Ordered 07/13/25 Ordered By: Michael Segura Quality Discharge Quality Measures none
[2025-07-14 03:02] LABS: Enterovirus Source CSF
[2025-07-14 06:56] LABS: Enterovirus RNA, PCR CSF NOT DETECTED
[2025-07-14 17:49] LABS: West Nile Virus (IgG), CSF <1.30
[2025-07-15 06:35] LABS: West Nile Virus (IgM), CSF 7.63
--- NOTE | 2025-07-15 09:20 | PC.IP ---
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 Notified Dr. Segura at 0920. She will notify the patient.
[2025-07-17 06:32] LABS: Angiotensin Convert Enz, CSF* <5 U/L (< OR = 15); Myelin Basic Protein, CSF* <2.0 mcg/L (< OR = 4.0); Oligoclonal Bands, CSF* ABSENT (ABSENT)
== END 2025-07-13 16:20 | disposition home or self-care (01) | DRG 52 ==
LOC: SERX 19:04 → SERHOLD 20:51 → S2NX 21:17 → S3SX 07-12 22:00
PROVIDERS: Nurse Practitioner Family; Registered Nurse General Practice; Admitting Provider Student in an Organized Health Care Education/Training Program; Emergency Provider Emergency Medicine; PCP Family Medicine; Visit Provider Student in an Organized Health Care Education/Training Program
DX: G93.40 Encephalopathy, unspecified (principal); R53.1 Weakness; I10 Essential (primary) hypertension; R63.0 Anorexia; E66.01 Morbid (severe) obesity due to excess calories; Z68.41 Body mass index [BMI] 40.0-44.9, adult; Z79.84 Long term (current) use of oral hypoglycemic drugs; E11.65 Type 2 diabetes mellitus with hyperglycemia; E87.6 Hypokalemia; I16.1 Hypertensive emergency; K75.9 Inflammatory liver disease, unspecified; Z79.899 Other long term (current) drug therapy
CPT/HCPCS: 36415; 36600; 70450; 70552; 71045; 74176; 76705; 80053; 80202; 80307; 80320; 81001; 82010; 82140; 82164; 82803; 82945; 83036; 83605; 83735; 83873; 83880; 83916; 84100; 84145; 84157; 84484; 85025; 85610; 85730; 86140; 86171; 86331; 86403; 86592; 86635; 86703; 86780; 86788; 86789; 87040; 87070; 87102; 87205; 87400; 87498; 87530; 87811; 89051; 93005; 93225; 96361; 96365; 96366; 96375; 97162; 99285; A9577; J0131; J0133; J0290; J0696; J1100; J1644; J1815; J2470; J3372; J3373; J3480; J3490; J7050; J7120; A9270; G0480; J1920